=== PATIENT | male | born 1940 | race Caucasian/White ===

== ENCOUNTER → 2017-02-24 | Outpatient (CLI) | payer OTHER | LOC: FIMAGING 09:56 | PROVIDERS: ATTEND Internal Medicine Hematology & Oncology | DX: M89.8X9 Other specified disorders of bone, unspecified site (principal); C61 Malignant neoplasm of prostate | CPT/HCPCS: 78306; A9503 ==

== ENCOUNTER → 2017-08-03 | Outpatient (CLI) | payer OTHER | LOC: BHFA 09:00 | PROVIDERS: ATTEND Internal Medicine Cardiovascular Disease | DX: R42 Dizziness and giddiness (principal); R53.83 Other fatigue; R06.02 Shortness of breath ==

== ENCOUNTER 2017-08-21 10:30 | Observation (INO) | payer OTHER ==
--- NOTE | 2017-08-21 10:45 | EDPHY ---
H & P Stated Complaint: r sided abd pain/n/v Time Seen by Provider: 08/21/17 10:44 - Personal History Current Tetanus Diphtheria and Acellular Pertussis (TDAP): Yes Tetanus Vaccine Date: <5 years - Medical/Surgical History Hx Asthma: No Hx Chronic Respiratory Disease: Yes Hx Diabetes: No Hx Cardiac Disease: No Hx Renal Disease: No Hx Cirrhosis: No Hx Alcoholism: No Hx HIV/AIDS: No Hx Splenectomy or Spleen Trauma: No Other PMH: medical HTN, COPD, Bladder Cancer, depression, Prostatectomy, tonsillectomy, episode of afib - Social History Smoking Status: Former smoker Constitutional: Initial Vital Signs Temperature (C) 36.3 C 08/21/17 10:37 Heart Rate 55 L 08/21/17 10:37 Respiratory Rate 18 08/21/17 10:37 Blood Pressure 226/104 H 08/21/17 10:37 O2 Sat (%) 95 08/21/17 10:37 O2 Delivery Mode Room Air Allergies/Adverse Reactions: Penicillins Allergy (Verified 08/21/17 10:36) Home Medications: Medication Instructions Recorded Atenolol [Tenormin 50 mg (*)] 50 mg PO DAILY 02/06/12 Ibuprofen [Motrin (*)] 200 mg PO Q8 PRN 03/29/14 diphenhydrAMINE [Benadryl 25 MG 25 mg PO DAILY PRN 03/29/14 (*)] Bicalutamide [Casodex (*)] 50 mg PO DAILY #30 tab 04/03/14 Megestrol Acetate [Megace 40 mg 40 mg PO QID #120 tab 04/03/14 (*)] Acetaminophen [Tylenol 325mg (*)] 650 mg PO Q4 PRN #0 tab 04/06/14 Zytiga 08/21/17 Medical Decision Making - Diagnostics Imaging Results: Imaging Impressions Abdomen CT 08/21/17 11:14 Impression: 1. 3.1 cm laminated gallstone within the gallbladder which may be impacted in the gallbladder neck distention of the gallbladder body and mild gallbladder wall thickening. If indicated, consider correlation with right upper quadrant ultrasound. 2. Diffuse thinning of the renal cortex bilaterally. 3. Previous prostatectomy for prostate cancer. 4. Diffuse osseous metastatic disease present without evidence of pathologic fracture. 5. Small enhancing lesion anterior superior bladder wall. If indicated, consider correlation with cystoscopy. 6. Diffuse diverticulosis of the colon without diverticulitis. Imaging: Discussed imaging studies w/ ruby engineer Radiologist, I viewed and interpreted images myself ED Course/Re-evaluation: CHIEF COMPLAINT: Abdominal pain HISTORY OF PRESENT ILLNESS: The patient is a 77 y/o male with a history of bladder cancer arriving with his family member complaining of RUQ abdominal pain onset around 03:00 this morning, about 8 hours ago. His pain radiates around to his back. He denies groin or testicle pain, dysuria, or flank pain. His pain is worse with certain positions and alleviated slightly by lying supine. He has associated nausea and vomiting. He denies diarrhea and has had normal bowel movements recently. He has no history of abdominal surgeries aside from a prostatectomy. REVIEW OF SYSTEMS: A 10 point review of systems was performed and is negative with the exception of the elements mentioned in the history of present illness. PHYSICAL EXAM: HR, BP, O2 Sat, RR. Temp noted General Appearance: Alert, well hydrated, appropriate, and non-toxic appearing. Head: Atraumatic without scalp tenderness or obvious injury Eyes: Pupils equal, round, reactive to light and accommodation, EOMI, no trauma , no injection. Nose: Atraumatic, no rhinorrhea, clear. Throat: Mucus membranes moist. Neck: Supple, nontender, no lymphadenopathy. Respiratory: No retractions, no distress, no wheezes, and no accessory muscle use. Lungs are clear to auscultation bilaterally. Cardiovascular: Regular rate and rhythm, no murmurs, rubs, or gallops. Good capillary refill all extremities. Gastrointestinal: Abdomen is soft, right pericolic gutter and RUQ tenderness, non-distended, no masses, no rebound, no guarding, no peritoneal signs. Musculoskeletal: Normal active ROM of all extremities, atraumatic. Neurological: Alert, appropriate, and interactive. Nonfocal neuro exam. Skin: No rashes, good turgor, no nodules on palpation. Past medical history: Bladder cancer, hypertension, Bladder Cancer, depression, episode of a-fib Past surgical history: Prostatectomy, laminectomy Family history: noncontributory Social history: Family member at bedside. Lives at [facility]. Retired. DIAGNOSTICS/PROCEDURES/CRITICAL CARE TIME: CT Abdomen/Pelvis: thickened gallbladder and stone in the duct DIFFERENTIAL DIAGNOSIS: The differential diagnosis for the patient's abdominal pain included but was not limited to appendicitis, cholecystitis, hernias, testicular torsion, gastritis, and urinary tract infection. MEDICAL DECISION MAKING: This is a 77 y/o male presenting with an 8-hour history of RUQ pain and vomiting. He has RUQ tenderness on exam and is afebrile. Plan for IV, labs, CT imaging, and symptom management. 1L IV NS, 4mg IV Zofran, and 1mg IV Dilaudid administered. WBC elevated. CT shows thickened gallbladder and stone in the duct. Gallbladder US ordered. 1330: Consulted with Dr. Go, surgeon. He will assess patient in the ED. Dr. Go will admit patient for acute cholecystitis. - Data Points Laboratory Results: Laboratory Results 08/21/17 10:55 08/21/17 10:55 08/21/17 08/21/17 10:55 10:55 WBC 12.53 10^3/uL H 10^3/uL (3.80-9.50) RBC 4.54 10^6/uL 10^6/uL (4.40-6.38) Hgb 15.1 g/dL g/dL (13.7-17.5) Hct 44.2 % % (40.0-51.0) MCV 97.4 fL fL (81.5-99.8) MCH 33.3 pg pg (27.9-34.1) MCHC 34.2 g/dL g/dL (32.4-36.7) RDW 14.1 % % (11.5-15.2) Plt Count 187 10^3/uL 10^3/uL (150-400) MPV 10.3 fL fL (8.7-11.7) Neut % (Auto) 82.0 % H % (39.3-74.2) Lymph % (Auto) 8.9 % L % (15.0-45.0) [place] % (Auto) 7.5 % % (4.5-13.0) Eos % (Auto) 0.4 % L % (0.6-7.6) Baso % (Auto) 0.4 % % (0.3-1.7) Nucleat RBC Rel Count 0.0 % % (0.0-0.2) Absolute Neuts (auto) 10.27 10^3/uL H 10^3/uL (1.70-6.50) Absolute Lymphs (auto) 1.12 10^3/uL 10^3/uL (1.00-3.00) Absolute Monos (auto) 0.94 10^3/uL H 10^3/uL (0.30-0.80) Absolute Eos (auto) 0.05 10^3/uL 10^3/uL (0.03-0.40) Absolute Basos (auto) 0.05 10^3/uL 10^3/uL (0.02-0.10) Absolute Nucleated RBC 0.00 10^3/uL 10^3/uL (0-0.01) Immature Gran % 0.8 % % (0.0-1.1) Immature Gran # 0.10 10^3/uL 10^3/uL (0.00-0.10) Sodium 143 mEq/L mEq/L (134-144) Potassium 3.6 mEq/L mEq/L (3.5-5.2) Chloride 107 mEq/L mEq/L (97-110) Carbon Dioxide 22 mEq/l mEq/l (22-31) Anion Gap 14 mEq/L mEq/L (8-16) BUN 13 mg/dL mg/dL (7-23) Creatinine 0.7 mg/dL mg/dL (0.7-1.3) Estimated GFR > 60 Glucose 114 mg/dL H mg/dL (70-100) Calcium 9.0 mg/dL mg/dL (8.5-10.4) Total Bilirubin 0.7 mg/dL mg/dL (0.1-1.4) Conjugated Bilirubin 0.4 mg/dL mg/dL (0.0-0.5) Unconjugated Bilirubin 0.3 mg/dL mg/dL (0.0-1.1) AST 20 IU/L IU/L (17-59) ALT 28 IU/L IU/L (21-72) Alkaline Phosphatase 66 IU/L IU/L (38-126) Total Protein 7.3 g/dL g/dL (6.3-8.2) Albumin 4.5 g/dL g/dL (3.5-5.0) Lipase 128 IU/L IU/L (23-300) Medications Given: Discontinued Medications Hydromorphone HCl (Dilaudid) 1 mg IVP EDNOW ONE Stop: 08/21/17 11:15 Last Admin: 08/21/17 11:16 Dose: 1 mg Sodium Chloride (Ns) 1,000 mls @ 0 mls/hr IV ONCE ONE PRN Reason: Wide Open Stop: 08/21/17 10:53 Last Admin: 08/21/17 10:57 Dose: 1,000 mls Sodium Chloride (Ns) 1,000 mls @ 0 mls/hr IV EDNOW ONE; Wide Open PRN Reason: Protocol Stop: 08/21/17 11:15 Last Admin: 08/21/17 11:17 Dose: Not Given Ondansetron HCl (Zofran) 4 mg IVP EDNOW ONE Stop: 08/21/17 10:53 Last Admin: 08/21/17 10:58 Dose: 4 mg Departure - Departure Disposition: [facility] Inpatient Acute Clinical Impression: Acute cholecystitis Gallbladder & bile duct stone with obstruction Qualifiers: Cholecystitis presence: with cholecystitis Cholecystitis acuity: acute Qualified Code(s): K80.63 - Calculus of gallbladder and bile duct with acute cholecystitis with obstruction Condition: Fair Referrals: María Elena Ellison MD [Primary Care Provider] - As per Instructions Report Scribed for: Julius Sanders Report Scribed by: Tamia Alvarenga Date of Report: 08/21/17 Time of Report: 11:14
[2017-08-21] MEDS ORDERED: NS 1,000 ML IV ONE ×2 (10:52→11:14)
[2017-08-21] MEDS ORDERED: ONDANSETRON 4 MG/2 ML VIAL IVP ONE (10:52)
[2017-08-21] MEDS ORDERED: HYDROmorphONE/DILAUDID 1 MG/ML INJ IVP ONE ×2 (11:14→14:19)
[2017-08-21] MEDS ORDERED: HYDROmorphONE/DILAUDID 1 MG/ML INJ ONE (11:14)
[2017-08-21 11:20] LABS: % IMMATURE GRANULYOCYTES 0.8 % (0.0-1.1); ADD DIFF? NO; ADD MORPH? NO; ADD SCAN? NO; ATYPICAL LYMPHOCYTE FLAG 0 (0-99); FRAGMENT RBC FLAG 0 (0-99); HEMATOCRIT 44.2 % (40.0-51.0); HEMOGLOBIN 15.1 g/dL (13.7-17.5); LEFT SHIFT FLG 0 (0-99); LIPEMIA HEMOLYSIS FLAG 90 (0-99); MEAN CELL HEMOGLOBIN 33.3 pg (27.9-34.1); MEAN CELL HEMOGLOBIN CONCENTR. 34.2 g/dL (32.4-36.7); MEAN CELL VOLUME 97.4 fL (81.5-99.8); MEAN PLATELET VOLUME 10.3 fL (8.7-11.7); PLATELET CLUMPS FLAG 0 (0-99); PLATELET COUNT 187 10^3/uL (150-400); RED BLOOD CELL COUNT 4.54 10^6/uL (4.40-6.38); RED CELL DISTRIBUTION WIDTH 14.1 % (11.5-15.2)
[2017-08-21 11:26] LABS: ALANINE AMINOTRANSFERASE 28 IU/L (21-72); ALBUMIN 4.5 g/dL (3.5-5.0); ALKALINE PHOSPHATASE 66 IU/L (38-126); ANION GAP 14 mEq/L (8-16); ASPARTATE AMINOTRANSFERASE 20 IU/L (17-59); BILIRUBIN,TOTAL 0.7 mg/dL (0.1-1.4); BILIRUBIN-CONJUGATED 0.4 mg/dL (0.0-0.5); BILIRUBIN-UNCONJUGATED 0.3 mg/dL (0.0-1.1); CARBON DIOXIDE 22 mEq/l (22-31); CHLORIDE 107 mEq/L (97-110); CREATININE 0.7 mg/dL (0.7-1.3); GLOMERULAR FILTRATION RATE > 60; GLUCOSE 114 mg/dL (70-100); POTASSIUM 3.6 mEq/L (3.5-5.2); SODIUM 143 mEq/L (134-144); TOTAL PROTEIN 7.3 g/dL (6.3-8.2)
[2017-08-21] MEDS ORDERED: IOPAMIDOL (ISOVUE-300) 100 ML BTL ONE (11:37)
[2017-08-21] MEDS ORDERED: ERTAPENEM 1 GM in NS 100 ML IV ONE (13:51)
[2017-08-21] MEDS ORDERED: BUPIVACAINE 0.25% 30 ML SDV ONE (14:02)
--- NOTE | 2017-08-21 14:35 | PDGENHP ---
History and Physical - Chief Complaint Right upper quadrant pain - History of Present Illness 77-year-old male who began noticing right upper quadrant pain last evening. States the pain began in the middle the night describes it as sharp, radiating towards the back and worse with movement. He has had abdominal pain before but nothing like this. In addition to the pain, he endorses nausea without vomiting. The pain has been unrelenting since it began it is better with IV narcotics. He denies having any fevers or chills, he denies having any acholic stools and or unusually dark urine. History Information - Allergies/Home Medication List Allergies/Adverse Reactions: Penicillins Allergy (Verified 08/21/17 10:36) Home Medications: Atenolol [Tenormin 50 mg (*)] 50 mg PO DAILY 02/06/12 [Last Taken 04/04/14] Ibuprofen [Motrin (*)] 200 mg PO Q8 PRN 03/29/14 [Last Taken Unknown] diphenhydrAMINE [Benadryl 25 MG (*)] 25 mg PO DAILY PRN 03/29/14 [Last Taken Unknown] Zytiga 08/21/17 [Last Taken Unknown] I have personally reviewed and updated: family history, medical history, social history, surgical history Past Medical History: Advanced prostate cancer - Surgical History Additional surgical history: Radical prostatectomy performed in 1997 - Family History Positive for: non-pertinent - Social History Smoking Status: Former smoker Alcohol Use: Occasionally Review of Systems Review of Systems: ROS: 10pt was reviewed & negative except for what was stated in HPI & below Physical Exam Physical Exam: Temp Pulse Resp BP Pulse Ox 36.8 C 66 16 212/102 H 93 08/21/17 14:14 08/21/17 14:14 08/21/17 14:14 08/21/17 14:14 08/21/17 14:14 Constitutional: uncomfortable Eyes: PERRL, anicteric sclera Ears, Nose, Mouth, Throat: moist mucous membranes, hearing normal Cardiovascular: regular rate and rhythym, no murmur, rub, or gallop Respiratory: no respiratory distress, no rales or rhonchi Gastrointestinal: other (Soft, tender to palpation in the right upper quadrant with a positive Green sign) Skin: warm Musculoskeletal: full muscle strength, no muscle tenderness Neurologic: AAOx3 Psychiatric: interacting appropriately, not anxious Lymph, Heme, Immunologic: no cervical LAD, no supraclavicular LAD Lab Data & Imaging Review 08/21/17 10:55 08/21/17 10:55 WBC 12.53 10^3/uL (3.80-9.50) H 08/21/17 10:55 RBC 4.54 10^6/uL (4.40-6.38) 08/21/17 10:55 Hgb 15.1 g/dL (13.7-17.5) 08/21/17 10:55 Hct 44.2 % (40.0-51.0) 08/21/17 10:55 MCV 97.4 fL (81.5-99.8) 08/21/17 10:55 MCH 33.3 pg (27.9-34.1) 08/21/17 10:55 MCHC 34.2 g/dL (32.4-36.7) 08/21/17 10:55 RDW 14.1 % (11.5-15.2) 08/21/17 10:55 Plt Count 187 10^3/uL (150-400) 08/21/17 10:55 MPV 10.3 fL (8.7-11.7) 08/21/17 10:55 Neut % (Auto) 82.0 % (39.3-74.2) H 08/21/17 10:55 Lymph % (Auto) 8.9 % (15.0-45.0) L 08/21/17 10:55 [place] % (Auto) 7.5 % (4.5-13.0) 08/21/17 10:55 Eos % (Auto) 0.4 % (0.6-7.6) L 08/21/17 10:55 Baso % (Auto) 0.4 % (0.3-1.7) 08/21/17 10:55 Nucleat RBC Rel Count 0.0 % (0.0-0.2) 08/21/17 10:55 Absolute Neuts (auto) 10.27 10^3/uL (1.70-6.50) H 08/21/17 10:55 Absolute Lymphs (auto) 1.12 10^3/uL (1.00-3.00) 08/21/17 10:55 Absolute Monos (auto) 0.94 10^3/uL (0.30-0.80) H 08/21/17 10:55 Absolute Eos (auto) 0.05 10^3/uL (0.03-0.40) 08/21/17 10:55 Absolute Basos (auto) 0.05 10^3/uL (0.02-0.10) 08/21/17 10:55 Absolute Nucleated RBC 0.00 10^3/uL (0-0.01) 08/21/17 10:55 Immature Gran % 0.8 % (0.0-1.1) 08/21/17 10:55 Immature Gran # 0.10 10^3/uL (0.00-0.10) 08/21/17 10:55 Sodium 143 mEq/L (134-144) 08/21/17 10:55 Potassium 3.6 mEq/L (3.5-5.2) 08/21/17 10:55 Chloride 107 mEq/L (97-110) 08/21/17 10:55 Carbon Dioxide 22 mEq/l (22-31) 08/21/17 10:55 Anion Gap 14 mEq/L (8-16) 08/21/17 10:55 BUN 13 mg/dL (7-23) 08/21/17 10:55 Creatinine 0.7 mg/dL (0.7-1.3) 08/21/17 10:55 Estimated GFR > 60 08/21/17 10:55 Glucose 114 mg/dL (70-100) H 08/21/17 10:55 Calcium 9.0 mg/dL (8.5-10.4) 08/21/17 10:55 Total Bilirubin 0.7 mg/dL (0.1-1.4) 08/21/17 10:55 Conjugated Bilirubin 0.4 mg/dL (0.0-0.5) 08/21/17 10:55 Unconjugated Bilirubin 0.3 mg/dL (0.0-1.1) 08/21/17 10:55 AST 20 IU/L (17-59) 08/21/17 10:55 ALT 28 IU/L (21-72) 08/21/17 10:55 Alkaline Phosphatase 66 IU/L (38-126) 09/30/17 10:55 Total Protein 7.3 g/dL (6.3-8.2) 08/21/17 10:55 Albumin 4.5 g/dL (3.5-5.0) 08/21/17 10:55 Lipase 128 IU/L (23-300) 08/21/17 10:55 Visualized and Interpreted imaging results: Yes Interpretation: CT scan shows a dilated gallbladder with a large stone impacted in the infundibulum with associated pericholecystic fluid. Ultrasound corroborates these findings Assessment & Plan Assessment: Acute cholecystitis (Acute) Gallbladder & bile duct stone with obstruction (Acute) Plan: 77-year-old male with acute cholecystitis Plan will be to proceed to the operating room as time permits for laparoscopic cholecystectomy. Risks benefits and alternatives to surgery discussed with the patient who wishes to proceed. Patient is also on a lot of new were drugs for his advanced prostate cancer, will inform his oncologist that he is in-house.
--- NOTE | 2017-08-21 15:46 | PDANEPAE ---
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 - Chronic Pain History Chronic Pain: No - Surgical History Prior Surgeries: prostatectomy ANE Review of Systems Review of Systems: - Systems Constitutional: Reports: malaise Cardiac: Reports: no symptoms Gastrointestinal: Reports: abdominal pain ANE Patient History - Allergies Allergies/Adverse Reactions: Penicillins Allergy (Verified 08/21/17 10:36) - Home Medications Home medications: home medication list seen and reviewed Home Medications: Atenolol [Tenormin 50 mg (*)] 50 mg PO DAILY 02/06/12 [Last Taken 04/04/14] Ibuprofen [Motrin (*)] 200 mg PO Q8 PRN 03/29/14 [Last Taken Unknown] diphenhydrAMINE [Benadryl 25 MG (*)] 25 mg PO DAILY PRN 03/29/14 [Last Taken Unknown] Zytiga 08/21/17 [Last Taken Unknown] - NPO status NPO Status: no food or drink >8 hours NPO Since - Liquids (Date): 08/21/17 NPO Since - Liquids (Time): 04:00 NPO Since - Solids (Date): 08/20/17 NPO Since - Solids (Time): 17:00 - Anes Hx Anes Hx: no prior problems - Smoking Hx Smoking Status: Former smoker Marijuana use: No - Alcohol Use Alcohol Use: Occasionally - Family Anes Hx Family Anes Hx: neg - N/A ANE Labs/Vital Signs - Labs Result Diagrams: 08/21/17 10:55 08/21/17 10:55 - Vital Signs Blood Pressure: 212/102 Heart Rate: 66 Respiratory Rate: 16 O2 Sat (%): 93 Height: 180.34 cm Weight: 59.874 kg ANE Physical Exam - Airway Neck exam: FROM Mallampati Score: Class 2 - Pulmonary Pulmonary: clear to auscultation - Cardiovascular Cardiovascular: other (occassional irregular beats) - ASA Status ASA Status: IV ANE Anesthesia Plan Anesthesia Plan: general endotracheal anesthesia
[2017-08-21] MEDS ORDERED: PROPOFOL 200 MG/20 ML VIAL ONE (16:05)
[2017-08-21] MEDS ORDERED: fentaNYL 100 MCG/2 ML INJ ONE ×3 (16:05→17:56)
[2017-08-21] MEDS ORDERED: PHENYLEPHRINE HCL 100 MCG/ML SYR ONE (16:29)
[2017-08-21] MEDS ORDERED: DEXAMETHASONE 4 MG/ML VIAL ONE (16:46)
[2017-08-21] MEDS ORDERED: ROCURONIUM 50 MG/5 ML VIAL ONE (16:46)
[2017-08-21] MEDS ORDERED: LIDOCAINE 2% 5 ML SDV ONE (16:46)
[2017-08-21] MEDS ORDERED: ONDANSETRON 4 MG/2 ML VIAL ONE (16:58)
[2017-08-21] MEDS ORDERED: KETOROLAC 30 MG/1 ML SDV ONE (17:06)
[2017-08-21] MEDS ORDERED: PROMETHAZINE HCL 25 MG/ML INJ IVP PRN (17:17)
[2017-08-21] MEDS ORDERED: [UNRECOGNIZED DRUG - OTHER] IV PRN (17:17)
[2017-08-21] MEDS ORDERED: NALOXONE HCL 0.4 MG/ML INJ IVP PRN (17:17)
[2017-08-21] MEDS ORDERED: HYDROCODONE/APAP 5/325 TAB PO PRN (17:17)
[2017-08-21] MEDS ORDERED: ACETAMINOPHEN 500 MG TAB PO PRN (17:17)
[2017-08-21] MEDS ORDERED: LABETALOL HCL 50 MG/10 ML SYR IVP PRN (17:17)
[2017-08-21] MEDS ORDERED: HYDROmorphONE/DILAUDID 1 MG/ML INJ IVP PRN (17:46)
[2017-08-21] MEDS ORDERED: ONDANSETRON 4 MG/2 ML VIAL IVP PRN (17:46)
--- NOTE | 2017-08-21 17:46 | POSTOPPROG ---
Post Op Note Date of Operation: 08/21/17 Surgeon: Nicholas Go Anesthesiologist: Sterling Anesthesia: GET(General Endotracheal) Pre-op Diagnosis: Cholecystitis Post-op Diagnosis: same Procedure: Lap Natalya Findings: very inflamed, large stone impacted in infundibulum, pus in GB as well Inf/Abcess present in the surg proc area at time of surgery?: Yes Depth: Organ Space EBL: 50-100 Specimen(s): GB
--- NOTE | 2017-08-21 17:47 | POSTANESTH ---
Post Anesthetic Evaluation Cardiovascular Status: Similar to Pre-Op Cond, Tx Hyper/Hypo-tension Respiratory Status: Normal, Stable Level of Consciousness/Mental Status: Can Participate in Eval, Mildly Sleepy, Arousable Pain Control: Adequate, Prn Tx Ordered Nausea/Vomiting Control: Adequate, Prn Tx Ordered Complications Possibly Related to Anesthesia: None Noted
[2017-08-21] MEDS: fentaNYL 100 MCG/2 ML INJ IVP PRN ×3 (17:58→18:54)
[2017-08-21] MEDS ORDERED: D5W 1/2 NS W/ 20 KCl/L 1,000 ML IV SCH (18:00)
[2017-08-21] MEDS ORDERED: OXYCODONE/APAP 5/325 TAB ONE (18:36)
[2017-08-21] MEDS: OXYCODONE/APAP 5/325 TAB PO PRN (18:38)
--- NOTE | 2017-08-21 21:26 | GOP ---
[f rep st] OPERATIVE REPORT DATE OF OPERATION: 08/21/2017 SURGEON: Nicholas Go MD DELICATESSEN CLERK: None. ANESTHESIA: General endotracheal. ANESTHESIOLOGIST: Keisha Medellin MD PREOPERATIVE DIAGNOSIS: Acute cholecystitis. POSTOPERATIVE DIAGNOSIS: Acute cholecystitis. PROCEDURE PERFORMED: Laparoscopic cholecystectomy. FINDINGS: Very inflamed gallbladder wall with purulent bile within the gallbladder proper. Large st one impacted in the infundibulum. SPECIMENS: Gallbladder. ESTIMATED BLOOD LOSS: 75 cc. DESCRIPTION OF PROCEDURE: The patient was greeted in the preoperative suite. Once again, risks, paul efits, and alternatives were discussed. The consent was then signed. He was then brought back to [facility] operative suite, placed on the OR table in supine position. After all anesthesia machines, includi ng SCDs, were on and functioning, a [employer] time-out was performed ending with all in agreement. After successful induction of general anesthesia, antibiotics were given on-call to [facility] operating room. His abdomen was then prepped and draped in typical sterile fashion. I entered the abdomen via an infraumbilical vertical incision, through which I placed a Veress needle. I achieved pneumoperitoneum to 15 mmHg. Through this site, I placed a 12 mm Visiport under direct visualizatio n. I then placed 3 additional 5 mm trocars, 1 in the subxiphoid, 2 in the right upper quadrant. Aft er this was done, the gallbladder wall was very tense. I successfully aspirated the contents which a ppeared to be purulent bile. After aspiration, I retracted the gallbladder successfully over the edg e of the liver. I grasped the infundibulum, and through a combination of electrocautery and blunt di ssection, I dissected out the infundibulum and identified 2, and only 2 structures, leading toward [facility] gallbladder. I placed 3 clips proximally on the cystic duct and divided it. I did the same for [facility] cystic artery. I then took the gallbladder off the liver bed using electrocautery. It was then pl aced in an EndoCatch bag and removed. Given the size of the stone within it, I had to increase my in fraumbilical port site. Once this was done, I turned my attention toward the liver bed which did hav e some bleeding in it. Using a combination of electrocautery and Surgicel, I was able to make the ar ea hemostatic. I also used Mally in the liver bed as well to ensure hemostasis. After this was done , I irrigated all of the blood out and noted clear effluent in the suction canister. My ports were t hen removed under direct visualization. Given the fact that I had to increase my infraumbilical port site, I closed it with a running 0 PDS noting excellent fascial reapproximation. The skin for all s ites was then closed with interrupted 4-0 Monocryl. The right-most port site had a little cutaneous bleeding as well. I closed this with an interrupted 3-0 nylon suture. Dermabond was placed to all i ncision sites except for this one. The patient was then extubated in the operative suite and taken t o the PACU in satisfactory condition. DRAINS: None. COUNTS: All counts were reported as correct x2. /[id number]/MODL
[2017-08-22] MEDS: OXYCODONE/APAP 5/325 TAB PO PRN ×2 (00:40→08:45)
[2017-08-22] MEDS ORDERED: NON-FORMULARY NEW DRUG (Fexofenadine Hcl [Allegra Allergy] 180 MG) PO PRN (06:09)
[2017-08-22 07:28] VITALS: BP 149/57; PULSE 74; RESP 16; TEMP 97.9; O2SAT 92
[2017-08-22] MEDS ORDERED: ERTAPENEM 1 GM in NS 100 ML IV ONE (08:00)
[2017-08-22] MEDS: ATENOLOL 50 MG TAB PO SCH ×2 (08:38→10:20)
[2017-08-22] MEDS: predniSONE 5 MG TAB PO SCH ×2 (08:38→10:20)
[2017-08-22] MEDS ORDERED: NON-FORMULARY NEW DRUG (Abiraterone Acetate [Zytiga] 1,000 MG) PO SCH (09:00)
--- NOTE | 2017-08-22 09:09 | PDDCSUM ---
Discharge Summary Discharge Summary: DISCHARGE SUMMARY Date of Admission August 21 Date of Discharge August 22 DISCHARGE DIAGNOSES -acute cholecystitis HOSPITAL COURSE The patient was admitted from the ED and taken to the operating room where they underwent an uneventful laparoscopic cholecystectomy for acute cholecystitis. They were subsequently taken to the PACU and then the general medical floor. The hospital course was uneventful, their diet was advanced to a regular diet which was well tolerated and their pain was well controlled. They were discharged home in stable condition on DISCHARGE MEDICATIONS Percocet as needed for pain DISPOSITION Home FOLLOW UP Follow up with me in the office in 10-14 days for a general post-operative visit
--- NOTE | 2017-08-22 11:04 | ASMTCMCOM ---
CM Note CM Note Notes: Chart reviewed. Patient discharging to home with no known needs. CM available should needs arise. Date Signed: 08/22/2017 11:04 AM Electronically Signed By:Kristen Mccabe RN
--- NOTE | 2017-08-22 15:07 | ASDISCHSUM ---
Discharge Information Plan Status:Home with No Needs Medically Cleared to Leave: Discharge Date:08/22/2017 12:25 PM CM D/C Disposition:Home, Routine, Self-Care ADT D/C Disposition:Home, Routine, Self-Care Projected Discharge Date:08/22/2017 12:25 PM Transportation at D/C:Family Discharge Delay Reason: Follow-Up Date:08/22/2017 12:25 PM Discharge Slot: Final Diagnosis: Placement Information Patient Contact Information Contact Name:ANA ROSAAbril Relationship: Address: Home Phone: Work Phone: City: Alternate Phone: State/Zip Code: Email: Financial Information Financial Class: Primary Plan Desc:MEDICARE OUTPATIENT Primary Plan Number:[id number] Secondary Plan Desc: Secondary Plan Number: Assessment Information [facility] CM Progress Note CM Note CM Note Notes: Chart reviewed. Patient discharging to home with no known needs. CM available should needs arise. Date Signed: 08/22/2017 11:04 AM Electronically Signed By:Kristen Mccabe RN Intervention Information
== END 2017-08-22 12:25 | disposition home or self-care (01) ==
LOC: F3E 13:51
PROVIDERS: ADMIT Surgery; ATTEND Surgery
PROC: 0FT44ZZ Resection of Gallbladder, Percutaneous Endoscopic Approach (ICD-10-PCS; principal; 2017-08-21 15:00)
DX: K80.00 Calculus of gallbladder with acute cholecystitis without obstruction (principal); I10 Essential (primary) hypertension; I49.3 Ventricular premature depolarization; J44.9 Chronic obstructive pulmonary disease, unspecified; C79.51 Secondary malignant neoplasm of bone; Z85.46 Personal history of malignant neoplasm of prostate
CPT/HCPCS: 47562; 74177; 76705; 88304; G0378; J0171; J1100; J1170; J1335; J1885; J2370; J2405; J2704; J3010; Q9967

== ENCOUNTER → 2017-10-11 | Outpatient (CLI) | payer OTHER | LOC: FIMAGING 15:30 | PROVIDERS: ATTEND Internal Medicine Hematology & Oncology | DX: R91.1 Solitary pulmonary nodule (principal); Z85.46 Personal history of malignant neoplasm of prostate ==

== ENCOUNTER → 2017-11-05 | Outpatient (CLI) | payer OTHER | LOC: BHFA 13:00 | PROVIDERS: ATTEND Internal Medicine Cardiovascular Disease | DX: R94.39 Abnormal result of other cardiovascular function study (principal); R53.83 Other fatigue; E78.5 Hyperlipidemia, unspecified; J44.9 Chronic obstructive pulmonary disease, unspecified | CPT/HCPCS: 78452; 93017; A9500; J2785 ==

== ENCOUNTER 2018-01-26 11:14 | Emergency (ER) | payer OTHER ==
--- NOTE | 2018-01-26 11:48 | EDPHY ---
H & P Stated Complaint: bilat earaches /st x 3 weeks Time Seen by Provider: 01/26/18 11:47 HPI/ROS: HPI: This is a 77-year-old male who presents with Chief Complaint: bilat earaches /st x 3 weeks Location: Bilateral ear Quality: Aching Duration: 3 weeks Signs and Symptoms: no fever, no nausea, no vomiting, no photophobia, no noise sensitivity, no neck stiffness, + ear pain, no tinnitus, no nasal congestion, no sinus pressure, no weakness, no radiation, + postnasal drip Timing: Worse at night Severity: [id number] Context: Patient reports that he has a history of seasonal allergies and has been taking Benadryl 3 times per day for the last month. Reports that he has continued ear pressure bilaterally and sore throat accompanied by postnasal drip that is worse at night. Patient also complains of sinus pressure and tenderness with green nasal discharge. Patient reports that he uses nasal spray daily as well. Modifying Factors: Benadryl and nasal spray Comment: ROS: see HPI Constitutional: No fever, no chills, no weight loss Eyes: No blurred vision Respiratory: No shortness of breath, no cough Cardiovascular: No chest pain, no palpitations Gastrointestinal: No nausea, no vomiting, no diarrhea, no hematemesis, no blood in stool Genitourinary: No dysuria, no blood in urine Extremities: No myalgias, no edema Neurologic: No weakness, no numbness Skin: No rashes, no petechiae Hematologic: No bruising, no bleeding MEDICAL/SURGICAL/SOCIAL HISTORY: Medical/Surgical history: HTN, COPD, Bladder Cancer, depression, Prostatectomy , tonsillectomy, episode of afib, COPD Social history: CONSTITUTIONAL: Extremely well-appearing elderly white male, awake and alert, no obvious distress HEENT: Atraumatic and normocephalic, PERRL, EOMI. Tympanic membranes clear; mild effusion bilaterally. Oropharynx clear, no exudate and moist pink mucosa. Airway patent. Nares with green discharge; boggy mucosa. + sinus tenderness. No lymphadenopathy. No meningismus. Cardiovascular: Normal S1/S2, regular rate, regular rhythm, without murmur rub or gallop. PULMONARY/CHEST: Symmetrical and nontender. Clear to auscultation bilaterally. Good air movement. No accessory muscle usage. ABDOMEN: Soft, nondistended, nontender, no rebound, no guarding, no peritoneal signs, no masses or organomegaly. No CVAT. EXTREMITIES: 2/2 pulses, strength 5/5, no deformities, no clubbing, no cyanosis or edema. NEUROLOGICAL: no focal neuro deficits. GCS 15. SKIN: Warm and dry, no erythema. no rash. Good capillary refill. Source: Patient Exam Limitations: No limitations - Personal History Current Tetanus/Diphtheria Vaccine: No Tetanus Vaccine Date: <5 years - Medical/Surgical History Hx Asthma: No Hx Chronic Respiratory Disease: Yes Hx Diabetes: No Hx Cardiac Disease: No Hx Renal Disease: No Hx Cirrhosis: No Hx Alcoholism: No Hx HIV/AIDS: No Hx Splenectomy or Spleen Trauma: No Other PMH: medical HTN, COPD, Bladder Cancer, depression, Prostatectomy, tonsillectomy, episode of afib copd - Social History Smoking Status: Former smoker Constitutional: Initial Vital Signs Temperature (C) 36.3 C 01/26/18 11:18 Heart Rate 80 01/26/18 11:18 Respiratory Rate 16 01/26/18 11:18 Blood Pressure 98/72 L 01/26/18 11:18 O2 Sat (%) 96 01/26/18 11:18 O2 Delivery Mode Room Air Allergies/Adverse Reactions: Penicillins Allergy (Intermediate, Verified 01/26/18 11:16) Itching Home Medications: Medication Instructions Recorded Acetaminophen [Tylenol 325mg (*)] 650 mg PO Q4 PRN #0 tab 04/06/14 Abiraterone Acetate [Zytiga] 1,000 mg PO DAILY 08/21/17 Denosumab [Prolia] 60 mg SQ .QMONTHLY 08/21/17 Cetirizine HCl/Pseudoephedrine 1 each PO BID #20 tab.er.12h 01/26/18 [Zyrtec-D Tablet] Metoprolol Succinate 01/26/18 levOFLOXACIN [levAQUIN (*)] 500 mg PO DAILY #10 tab 01/26/18 Medical Decision Making ED Course/Re-evaluation: Symptoms greater than 10 days; will treat with antibiotics; penicillin allergy; Rx Levaquin and Zyrtec D given This patient was seen under the supervision of my secondary supervising physician. I evaluated care for this patient independently. Differential Diagnosis: Differential diagnosis includes but is not limited to sinus disease, allergic rhinitis, eustachian tube dysfunction, cerumen impaction. Departure - Departure Disposition: Home, Routine, Self-Care Clinical Impression: Sinus disease Condition: Good Instructions: Sinusitis (ED), Allergies (ED) Referrals: María Elena Ellison MD [Primary Care Provider] - As per Instructions Woo Meeks MD [Medical Doctor] - As per Instructions Prescriptions: Cetirizine HCl/Pseudoephedrine [Zyrtec-D Tablet] 1 each PO BID #20 tab.er.12h levOFLOXACIN [levAQUIN (*)] 500 mg PO DAILY #10 tab
[2018-01-26 13:12] VITALS: BP 121/71; PULSE 67; RESP 18; TEMP 98.1; O2SAT 97
== END 2018-01-26 13:11 | disposition home or self-care (01) ==
DX: J32.9 Chronic sinusitis, unspecified (principal); J44.9 Chronic obstructive pulmonary disease, unspecified; I10 Essential (primary) hypertension; Z85.51 Personal history of malignant neoplasm of bladder; Z87.891 Personal history of nicotine dependence

== ENCOUNTER 2018-01-31 14:22 | Inpatient (IN) | payer OTHER ==
[2018-01-31] MEDS ORDERED: NS 1,000 ML IV ONE (14:32)
[2018-01-31] MEDS ORDERED: IPRATROPIUM/ALBUTEROL 3 ML DEYVIAL IH ONE (14:32)
--- NOTE | 2018-01-31 14:56 | CPEKG ---
Heart Rate: 104 RR Interval: 577 P-R Interval: 184 QRSD Interval: 118 QT Interval: 376 QTC Interval: 495 P [place]: 69 QRS [place]: -103 T Wave [place]: -26 EKG Severity - ABNORMAL ECG - EKG Impression: SINUS TACHYCARDIA EKG Impression: IRBBB AND LPFB EKG Impression: INFERIOR INFARCT, AGE INDETERMINATE Electronically Signed By: Woo Diaz 31-Jan-2018 17:03:59
--- NOTE | 2018-01-31 15:29 | EDPHY ---
H & P Time Seen by Provider: 01/31/18 14:24 HPI/ROS: Chief complaint. Shortness of breath HPI. Patient is a 77-year-old male presents emergency department with increasing shortness of breath over the last couple days. Dry nonproductive cough. Does not think fever. Upper airway congestion recent treatment for sinusitis. He feels like he still getting a lot of postnasal drainage. He has had some nausea and vomiting and difficulty keeping oral fluids down. No abdominal pain however. No chest discomfort. Activities that he had done several weeks ago now make him short of breath. He was treated with Levaquin for recent sinusitis. Frequent falls. ROS Constitutional. Generalized weakness Eyes. no problems with vision ENT. Congestion Cardiovascular. no chest pain Respiratory. Shortness of breath on exertion Abdominal. no abdominal pain, no nausea/vomiting, no diarrhea . no problems urinating MS. no calf pain/swelling, no neck/back pain, no joint pain Skin. Abrasion left elbow secondary to fall Lymph. no swollen glands Neuro. Difficulty walking secondary to weakness Past Medical/Surgical History: Hypertension, COPD, bladder cancer, depression, atrial fibrillation, COPD Social History: , nonsmoker, no alcohol Smoking Status: Former smoker Physical Exam: General Appearance: Alert well-developed male moderate distress vital signs significant for blood pressure 87/76 Eyes: Pupils equal and round no pallor or injection. ENT, mucous membranes are dry. Patient has broken tooth without obvious swelling right lower mandible. Respiratory: There are no retractions, lungs are clear to auscultation. Cardiovascular: Regular rate and rhythm. Gastrointestinal: Abdomen is soft and nontender, no masses, bowel sounds normal. Neurological: Awake and alert, sensory and motor exams grossly normal. Skin: Warm and dry, no rashes. Musculoskeletal: Neck is supple nontender. Extremities symmetrical, full range of motion. Psychiatric: Patient is oriented X 3, there is no agitation. Constitutional: Initial Vital Signs Temperature (C) 36.7 C 01/31/18 14:39 Heart Rate 92 01/31/18 14:39 Respiratory Rate 20 01/31/18 14:39 Blood Pressure 87/76 L 01/31/18 14:39 O2 Sat (%) 94 01/31/18 14:39 O2 Delivery Mode Room Air Allergies/Adverse Reactions: Penicillins Allergy (Intermediate, Verified 01/31/18 14:37) Itching Home Medications: Medication Instructions Recorded Acetaminophen [Tylenol 325mg (*)] 650 mg PO Q4 PRN #0 tab 04/06/14 Abiraterone Acetate [Zytiga] 1,000 mg PO DAILY 08/21/17 Denosumab [Prolia] 60 mg SQ .QMONTHLY 08/21/17 Cetirizine HCl/Pseudoephedrine 1 each PO BID #20 tab.er.12h 01/26/18 [Zyrtec-D Tablet] Metoprolol Succinate 01/26/18 levOFLOXACIN [levAQUIN (*)] 500 mg PO DAILY #10 tab 01/26/18 Medical Decision Making - Diagnostics Imaging Results: Imaging Impressions Chest X-Ray 01/31/18 14:32 Impression: No pneumonia. Results reviewed with Dr. Miguel Weller at 4:00 PM. Chest x-ray interpreted by me shows multiple metastatic nodules. There does appear to be a pneumonia Procedures: IV normal saline. Septic workup ED Course/Re-evaluation: Severe sepsis declared now is initial lactate is 2.6 I consulted discussed case with Dr. Angulo, hospitalist, who agrees to the admission Patient also has a significantly elevated BUN and creatinine. He has previously had normal renal function. Patient and I discussed treatment plan including recommendation for admission. He expresses understanding and agrees Differential Diagnosis: At this point I do not see an obvious source of infection. I think the elevated lactate and hypo tension maybe due to severe dehydration. I think that the acute renal failure is also likely due to his dehydration. Plan is admission, hydration and possible antibiotics. - Data Points Laboratory Results: Laboratory Results 01/31/18 15:40 01/31/18 15:40 01/31/18 01/31/18 01/31/18 15:40 15:40 15:40 WBC 10.80 10^3/uL H 10^3/uL (3.80-9.50) RBC 4.39 10^6/uL L 10^6/uL (4.40-6.38) Hgb 14.2 g/dL g/dL (13.7-17.5) Hct 41.3 % % (40.0-51.0) MCV 94.1 fL fL (81.5-99.8) MCH 32.3 pg pg (27.9-34.1) MCHC 34.4 g/dL g/dL (32.4-36.7) RDW 13.3 % % (11.5-15.2) Plt Count 284 10^3/uL 10^3/uL (150-400) MPV 10.6 fL fL (8.7-11.7) Neut % (Auto) 74.1 % % (39.3-74.2) Lymph % (Auto) 11.9 % L % (15.0-45.0) [place] % (Auto) 10.8 % % (4.5-13.0) Eos % (Auto) 1.7 % % (0.6-7.6) Baso % (Auto) 0.6 % % (0.3-1.7) Nucleat RBC Rel Count 0.0 % % (0.0-0.2) Absolute Neuts (auto) 8.00 10^3/uL H 10^3/uL (1.70-6.50) Absolute Lymphs (auto) 1.29 10^3/uL 10^3/uL (1.00-3.00) Absolute Monos (auto) 1.17 10^3/uL H 10^3/uL (0.30-0.80) Absolute Eos (auto) 0.18 10^3/uL 10^3/uL (0.03-0.40) Absolute Basos (auto) 0.06 10^3/uL 10^3/uL (0.02-0.10) Absolute Nucleated RBC 0.00 10^3/uL 10^3/uL (0-0.01) Immature Gran % 0.9 % % (0.0-1.1) Immature Gran # 0.10 10^3/uL 10^3/uL (0.00-0.10) VBG Lactic Acid 2.6 mmol/L H mmol/L (0.7-2.1) Sodium 148 mEq/L H mEq/L (135-145) Potassium 3.7 mEq/L mEq/L (3.5-5.2) Chloride 106 mEq/L mEq/L (97-110) Carbon Dioxide 11 mEq/l L mEq/l (22-31) Anion Gap 31 mEq/L H mEq/L (8-16) BUN 67 mg/dL H mg/dL (7-23) Creatinine 3.6 mg/dL H mg/dL (0.7-1.3) Estimated GFR 17 Glucose 93 mg/dL mg/dL (70-100) Calcium 9.6 mg/dL mg/dL (8.5-10.4) Total Bilirubin 0.7 mg/dL mg/dL (0.1-1.4) Troponin I Pending NT-Pro-B Natriuret Pep Pending Medications Given: Discontinued Medications Albuterol/Ipratropium (Duoneb) 3 ml IH EDNOW ONE Stop: 01/31/18 14:33 Last Admin: 01/31/18 15:25 Dose: 3 ml Sodium Chloride (Ns) 1,000 mls @ 0 mls/hr IV ONCE ONE; Wide Open PRN Reason: Protocol Stop: 01/31/18 14:33 Last Admin: 01/31/18 15:38 Dose: 1,000 mls Sodium Chloride (Ns) 1,700 mls @ 3,400 mls/hr 30 ml/kg infuse over 30 min ( 1700 ml) IV EDNOW ONE PRN Reason: Protocol Stop: 01/31/18 16:26 Last Admin: 01/31/18 16:29 Dose: 1,700 mls Departure - Departure Disposition: [facility] In[facility] Acute Clinical Impression: Acute renal failure Qualifiers: Acute renal failure type: unspecified Qualified Code(s): N17.9 - Acute kidney failure, unspecified Condition: Fair
[2018-01-31 15:55] LABS: PLATELET COUNT 284 10^3/uL (150-400)
[2018-01-31] MEDS ORDERED: NS 1,700 ML IV ONE (15:57)
[2018-01-31] MEDS ORDERED: 1/2 NS 1,000 ML IV SCH (17:00)
[2018-01-31] MEDS ORDERED: NS 1,000 ML IV SCH (17:30)
[2018-01-31] MEDS: CEFEPIME HCL 1 GM in STERILE WATER INJ 11.3 ML IV SCH (18:20)
--- NOTE | 2018-01-31 18:32 | GHP ---
[f rep st] HISTORY AND PHYSICAL DATE OF ADMISSION: 01/31/2018 CHIEF COMPLAINT: Dyspnea and possible syncope. HISTORY OF PRESENT ILLNESS: The patient is a 77-year-old male with a history of metastatic bladder cancer, COPD and hypertension, who presents to the emergency department reporting shortness of breath, dizziness, and possible syncope. He denies fevers or chills. He denies cough. He was recently started on Levaquin for treatment of sinusitis. He has had a lot of postnasal drainage associated with this. He also reports a dental infection. He states he saw a holistic dentist who referred him to a special warfare combatant crewman. He has not been started on an antibiotic for this tooth infection other than the Levaquin he is taking for his sinuses. He reports poor oral intake over the past couple of days. Today, he began to feel lightheaded and dizzy. He states he stood up to take a couple of steps and "the lights when out." He found himself on the ground. He does not think he hit his head. He denies any preceding chest pain or heart palpitations. He feels his shortness of breath has gotten worse over the past several days. He notes he has been falling more frequently. He was diagnosed with bladder cancer in 1997. He was treated with radiation therapy in 1999 and then underwent chemotherapy with docetaxel in 2014. However, he did not tolerate this well and thus it was discontinued. He has since been followed by Dr. Lesli Pizarro and he takes Zytiga and prednisone. He has known metastases to his lungs as well as diffuse osseous metastatic disease. In the emergency department, he was hypotensive on arrival with a blood pressure of 87/76, with mild tachycardia. His heart rate has been 90s to 100. Sepsis workup ensued. He was given a 30 cc/kg fluid bolus, with an elevated lactate of 2.6, and he is admitted to the hospital for further management. PAST MEDICAL HISTORY: 1. 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 Lesli Pizarro as the [facility]. Bone scan in February 2017 showed evidence of metastases throughout the right glenoid, multiple vertebral bodies, and the thoracic and lumbar spine. 2. COPD. He does not use inhalers. 3. Hypertension. 4. Poor dentition with history of dental infections. 5. History of atrial fibrillation. 6. History of depression. 7. History of chronic fecal incontinence, secondary to radiation therapy for his prostate cancer. 8. Chronic anemia. 9. Lower extremity wounds. MEDICATIONS: Please see [employer] for completed outpatient medication list. ALLERGIES: Penicillin. SOCIAL HISTORY: Patient lives independently. He denies current tobacco use, but has a 30 pack-year history. FAMILY HISTORY: His sister has COPD. His parents are . REVIEW OF SYSTEMS: A 10-point review of systems was performed and is negative, except as per HPI. OBJECTIVE: VITAL SIGNS: Temperature is 36.7, blood pressure 87/76, heart rate 92, respiratory rate 20. He is 94% on room air. GENERAL: The patient is awake , alert and oriented, in no distress. HEENT: Head is atraumatic, normocephalic. Pupils equal, round, react to light. Extraocular muscles intact. Oropharynx is clear. Mucous membranes are dry. He has a likely dental infection in his 1st molar, with obvious decay and surrounding edema and pain. NECK: Supple there is no JVD. No cervical lymphadenopathy. HEART: Regular rate and rhythm. LUNGS: Clear to auscultation bilaterally, though he has very diminished breath sounds with decreased respiratory effort. ABDOMEN: Soft, nondistended, nontender. Normoactive bowel tones. EXTREMITIES: Without cyanosis, clubbing, or edema. NEUROLOGIC: Grossly nonfocal. LABORATORY DATA: CBC reveals a white blood cell count 10.8, with 74% neutrophils. Lactic acid is 2.6. Basic metabolic panel is remarkable for sodium of 148, potassium 37, CO2 is 11, BUN 67, creatinine 3.6, bilirubin is normal. Troponin is negative. NT proBNP is 938, which is lower than the last BNP of 2500 in 2014. Chest x-ray performed in the emergency department shows chronic elevation of the right hemidiaphragm, with scattered sclerotic bone metastases. There is no focal infiltrate, consolidation, or effusion. No pneumothorax or pulmonary parenchymal mass. EKG shows sinus tachycardia with an incomplete right bundle branch block and left posterior fascicular block. He has Q-waves in his inferior leads which are new from his previous EKG in 2014. ASSESSMENT AND PLAN: The patient is a 77-year-old male with history of metastatic bladder cancer, hypertension, and chronic obstructive pulmonary disease. Presents to the emergency department with hypotension, dyspnea, and suspected syncope. 1. Hypotension. His blood pressure is responsive to normal saline fluid bolus in the ED. This may represent volume depletion given his decreased oral intake. Also consider sepsis. Though he is afebrile, he presents with tachycardia, elevated lactate, and a white blood cell count of 10.8. His chest x-ray is not suggestive of pneumonia. Urinalysis is pending. He does have evidence of a dental infection which puts him at risk for bacteremia. Blood cultures are drawn. We will start him on cefepime plus Flagyl given his immunocompromised state, on chronic prednisone to cover for oral anaerobes and Pseudomonas. Also, consider PE, see below. 2. Possible syncope. This may have been a result of orthostasis. His blood pressure is improved with intravenous fluid bolus. Given his history of cancer and increased risk for thromboembolic disease, along with dyspnea, d dimer was checked and is markedly elevated at 9.8. He cannot undergo CTA due to elevated Cr. Will check a LE u/s to evaluate for DVT now and order V/Q scan for am. Symptoms and BP are improved so will defer heparin drip for now unless DVT study is positive. Also check echocardiogram to evaluate for right heart strain. 3. Acute kidney injury. His creatinine on arrival was 3.6 with a BUN of 67. He has no urgent dialysis needs. This is most likely a prerenal state given his hypotension on arrival. He is status post intravenous fluid bolus. We will continue intravenous fluids overnight, check a urine sodium and urine creatinine to calculate fractional excretion of sodium for further evaluation. If this is not trending down by morning with intravenous fluid resuscitation, I would recommend a renal consult. 4. Anion gap metabolic acidosis. This may be lactic acidosis versus starvation ketosis. We will continue intravenous fluids and consider sodium bicarb, though, I would like to see how he responds to volume resuscitation first to avoid rapid correction. 5. Bladder cancer with metastases to the lungs and bone. We will continue his Zytiga and prednisone, and alert Oncology of his admission. 6. Abnormal EKG. He has Q-waves in his inferior leads which are new from his last EKG. His initial troponin is negative. We will trend his troponin and check an echocardiogram to ensure no wall motion abnormality given his new Q- waves and presenting symptom of dyspnea. 7. Chronic obstructive pulmonary disease. He does not seem to be in acute exacerbation nor does he use inhalers at home. We will give him four times daily DuoNeb and continue his prednisone as above. 8. Hypertension. Hold outpatient antihypertensives due to hypotension on arrival. 9. Deep venous thrombosis prophylaxis. The patient is high risk. NITHIN, start tonight. CODE STATUS: Patient is full code. DISPOSITION: Patient admitted to inpatient status. I anticipate greater than 48 hours hospitalization for ongoing workup and management of his hypotension, syncope, and acute kidney injury. /[id number]/MODL MTDD
[2018-01-31 19:45] LABS: INR 1.32 (0.83-1.16); PROTIME(PATIENT) 16.6 SEC (12.0-15.0)
[2018-01-31] MEDS: IPRATROPIUM/ALBUTEROL 3 ML DEYVIAL IH SCH (20:37)
[2018-01-31] MEDS ORDERED: ONDANSETRON DISINTEGRATING 4 MG TAB PO PRN (22:24)
[2018-01-31] MEDS: CETIRIZINE 10 MG TAB PO SCH (22:35)
[2018-01-31] MEDS: ACETAMINOPHEN 325 MG TAB PO PRN (22:36)
[2018-01-31] MEDS: predniSONE 5 MG TAB PO SCH (22:36)
[2018-01-31] MEDS: PSEUDOEPHEDRINE HCL 120 MG EXT REL TAB PO SCH (22:36)
[2018-01-31] MEDS: HEPARIN 5,000 UNIT/0.5 ML SYR SC SCH (22:37)
[2018-01-31] MEDS ORDERED: POTASSIUM CL 20 MEQ TAB PO ONE (22:52)
[2018-01-31] MEDS ORDERED: SODIUM BICARBONATE 150 MEQ in D5W 1,000 ML IV SCH (23:00)
[2018-01-31] MEDS ORDERED: POTASSIUM CL 20 MEQ/15 ML UDCUP PO ONE (23:45)
[2018-02-01] MEDS: POTASSIUM Cl (KCl) 10 MEQ in NS 100 ML IV SCH ×6 (00:15→22:30)
[2018-02-01] MEDS: CETIRIZINE 10 MG TAB PO SCH ×2 (00:22→08:21)
[2018-02-01 04:26] LABS: PLATELET COUNT 164 10^3/uL (150-400)
[2018-02-01] MEDS: ACETAMINOPHEN 325 MG TAB PO PRN ×2 (04:26→22:21)
[2018-02-01] MEDS: IPRATROPIUM/ALBUTEROL 3 ML DEYVIAL IH SCH ×4 (05:42→21:09)
[2018-02-01] MEDS: HEPARIN 5,000 UNIT/0.5 ML SYR SC SCH ×3 (05:56→22:09)
[2018-02-01] MEDS: PSEUDOEPHEDRINE HCL 120 MG EXT REL TAB PO SCH (08:21)
[2018-02-01] MEDS: predniSONE 5 MG TAB PO SCH ×2 (08:21→22:09)
[2018-02-01] MEDS: CEFEPIME HCL 1 GM in STERILE WATER INJ 11.3 ML IV SCH (08:21)
[2018-02-01] MEDS ORDERED: ENOXAPARIN 40 MG/0.4 ML SYR SC SCH (09:00)
--- NOTE | 2018-02-01 10:17 | HOSPPROG ---
Hospitalist Progress Note Assessment/Plan: #hypotension, presumed sepsis, Bd cx pending, cefipime/flagyl IV, improved -possible dental source, poor dentition, vs recent sinus(s/p levaquin as outpt) - s/p fluid bolus -holding anti htn meds -FYI PCP cardiology is Dr Beard #syncope -likely from above #NESSA, likely pre-renal -responding well to IVF, creat 2 now #metastatic bladder cancer -FYI Dr Pizarro is PCP oncology -Dr Gr informed of admission but no indication for consult at this time #COPD -home meds/nebs #HTN -holding home meds #abnl EKG -trop trend OK -echo mild conc LV, EF 73%, nl wall motion #elev d dimer -neg LE US -low prob VQ scan #hypoK, hypomag, hypocalcium -replace per protocol #anemia -significant change from admission -no indication of acute bleeding, possible dilutional -follow closely/recheck in AM DNR, assist with proxy/POA dispo- anticipate > 2 mdnts bc of IV abx and NESSA, discussed assisted life transition vs SNF, pending PT/OT evals PCP- Dr Ellison VTE prophy- [facility] bc of NESSA, consider change to lovenox tomorrow depending upon renal function Subjective: Says feeling much better than yesterday. Has nasal congestion/PND, mucous upsets stomach. + N, no V. No children, older sister was POA but she last yr and he hasn't changed paperwork. Has a good friend listed as contact in chart, likely will ask niece in [place] to be proxy. Mild SOB, no CP. Objective: Vital Signs Temp Pulse Resp BP Pulse Ox 97.6 F 98 20 113/59 L 99 02/01/18 07:27 02/01/18 07:53 02/01/18 07:53 02/01/18 07:53 02/01/18 07:53 Laboratory Results 02/01/18 04:14 02/01/18 04:14 01/30/18 01/31/18 02/01/18 11:59 11:59 11:59 Intake Total 1380 Output Total 325 Balance 1055 PT 16.6 SEC (12.0-15.0) H 01/31/18 19:30 INR 1.32 (0.83-1.16) H 01/31/18 19:30 - Time Spent With Patient Time Spent with Patient: greater than 35 minutes Time Spent with Patient: Greater than 35 minutes spent on this patients care, greater than 50% of time spent counseling, educating, and coordinating care regarding the above mentioned plan. - Physical Exam Constitutional: no apparent distress, chronically ill appearing (frail) Eyes: anicteric sclera Ears, Nose, Mouth, Throat: moist mucous membranes Cardiovascular: regular rate and rhythym Respiratory: no respiratory distress, no rales or rhonchi Gastrointestinal: normoactive bowel sounds, No guarding, No rebound Skin: warm Psychiatric: interacting appropriately, not anxious, not encephalopathic, thought process linear ICD10 Worksheet Patient Problems: Problems Problem Status Onset Acute renal failure Acute Acute cholecystitis Acute Gallbladder & bile duct stone with obstruction Acute Prostate cancer Acute
--- NOTE | 2018-02-01 10:47 | PDMN ---
Medical Necessity Medical necessity: est los>2mn for hypotension, possible syncope, NESSA, AGMA, dental infection, and abnormal EKG; admit for IVF, tele, r/o PE r/t elevated d- dimer, IV abx, and trend troponin; comorbid bladder CA w/mets to lung and bone, COPD, HTN (hold meds); per order and H&P 01/31/18
--- NOTE | 2018-02-01 11:58 | WOCRNPDOC ---
[facility] Advanced Assessment Note - Skin Integrity Problem, Advanced Assess Right Posterior Head Abrasion Dressing Type: Open to Air Exudate Characteristic(s): Dried Natalie Wound Tissue: Intact Natalie Wound Swelling: None Wound Bed Color: Brown Wound Bed Constitution: Scab Site Measurement - Head-to-Toe Length X Width X Depth (cm): 1.2cmx1.4cmx scab Skin Integrity Problem Comment: Scab noted to right posterior aspect of patient' s head. Per his report, he hit his head during a recent fall at [facility] where he resides. Surrounding skin is intact and blanching with no erythema or swelling observed. Patient has too much hair to apply a dressing to this wound. Will have nursing apply Hydrogel daily to confer some moisture to the site. Wound care does not need to follow ongoing. Coccyx Dressing Type: Open to Air Integumentary Issue Intervention: Barrier Cream Applied (Calazime, applied by nursing) Natalie Wound Tissue: Blanching, Erythema, Denuded Skin Integrity Problem Comment: Raw, denuded skin noted throughout patient's coccyx and intergluteal cleft. There are scattered areas of erythema, all currently blanching and intact. Patient normally independent and mobile, but very thin w/ a BMI of 17.9. Will have nursing apply Calazime r/t denudement from stools. pastoral counselorPAWAN Collado initiated pressure-relieving interventions, and these are appropriate to continue given patient's current situation. Wound care does not need to follow ongoing.
[2018-02-01] MEDS ORDERED: CEPACOL LOZENGE PO PRN (12:42)
[2018-02-01] MEDS: Abiraterone Acetate [Zytiga] 1,000 MG PO SCH (13:03)
[2018-02-01] MEDS: ONDANSETRON 4 MG/2 ML VIAL IVP PRN (13:10)
--- NOTE | 2018-02-01 14:09 | ECHO ---
[email or web address] [address] [address] Main: [phone] Fax: Transthoracic Echocardiogram Name: SHAWN CORTES MR#: [id number] Study Date: 02/01/2018 Study Time: 09:51 AM Date of : 1940 Age: 77 year(s) Height: 177.8 cm (70 in.) Weight: 56.7 kg (125 lb.) BSA: 1.71 m2 Gender: Male Examination: Echo Indication: Dyspnea/new Q waves on EKG, seen by [facility] Image Quality: Technically Difficult Contrast: Requested by: Macrina Angulo BP: 115 mmHg/70 mmHg Heart Rate: Rhythm: Indication: Dyspnea/new Q waves on EKG, seen by [facility] Procedure Staff Student Activities Director: Judith Billings RDCS Reading Physician: Darryl Calvillo MD Requesting Provider: Conclusions: Normal size left ventricle. Mild concentric LV hypertrophy. EF is 73 %. No regional wall motion abnormality. Grade 1 diastolic dysfunction (abnormal relaxation). Mild age-related valvular changes. Mild tricuspid regurgitation. Measurements: Chambers Valvular Assessment AV/MV Valvular Assessment TV/PV Normal Normal Normal Name Value Range Name Value Range Name Value Range Ao Lisa (MM): 3.8 cm (2.2 cm-3.7 AV meanP mmHg ( - ) cm) MV E Vmax: 0.69 m/s ( - ) IVSd (2D): 1.0 cm (0.6 cm-1.1 MV A Vmax: 1.09 m/s ( - ) cm) MV E/A: 0.63 ( - ) LVDd (2D): 3.6 cm (4.2 cm-5.9 cm) LVDs (2D): 2.1 cm (2.1 cm-4 cm) LVPWd (2D): 0.8 cm (0.6 cm-1 cm) LVEF (2D): 73 (>=54 %) Continued Measurements: Valvular Assessment AV/MV Name Value MV E/E' Septal: 15.60 MV E/E' Lateral: 11.40 Patient: SHAWN CORTES Study Date: 02/01/2018 Page 1 of 2 09:51 AM Findings: Left Ventricle: Normal size left ventricle. Mild concentric LV hypertrophy. Global hypercontractility of the left ventricle. EF is 73 %. No regional wall motion abnormality. Grade 1 diastolic dysfunction (abnormal relaxation). Right Ventricle: Normal size right ventricle. Left Atrium: The left atrium is normal in size. Right Atrium: The right atrium is normal in size. Mitral Valve: The mitral valve is normal in appearance and function. Aortic Valve: The aortic valve is normal in appearance and function. Mildly calcific NCC of the aortic valve.. Tricuspid Valve: The tricuspid valve is normal in appearance and function. Mild tricuspid regurgitation is present. Pulmonic Valve: The pulmonic valve is normal in appearance and function. Aorta: The aorta is normal. Pericardium: No pericardial effusion. There is pericardial fat. (No Signature Object) Patient: SHAWN CORTES Study Date: 02/01/2018 Page 2 of 2 09:51 AM [id number]
[2018-02-01] MEDS ORDERED: PROTOCOL POTASSIUM 1 DOSE MISC PRN (15:06)
[2018-02-01] MEDS ORDERED: PROTOCOL MAGNESIUM 1 DOSE IV PRN (15:06)
[2018-02-01] MEDS ORDERED: PROTOCOL CALCIUM 1 DOSE IV PRN (15:11)
[2018-02-01] MEDS ORDERED: MAGNESIUM SULF 2 GM/WATER 50 ML IV ONE (15:56)
[2018-02-01] MEDS ORDERED: POTASSIUM CL IV SCH (16:00)
[2018-02-01] MEDS ORDERED: NS IV SCH (16:00)
--- NOTE | 2018-02-01 17:24 | ASMTCMCOM ---
CM Note CM Note Notes: Pt admitted w/hypotension, possible syncope, dental infection & abnormal EKG r/o PE. Hx of bladder cancer w/mets to lung & bone. Pt normally lives independently. PT/OT ordered; awaiting eval. CM will follow. Date Signed: 02/01/2018 05:23 PM Electronically Signed By:Ml Chao RN
[2018-02-01] MEDS ORDERED: CALCIUM GLUCONATE 1 GM in D5W 50 ML IV ONE (19:30)
[2018-02-01] MEDS ORDERED: CALCIUM GLUCONATE 50 ML IV ONE (21:00)
[2018-02-02] MEDS ORDERED: POTASSIUM CL 20 MEQ/15 ML UDCUP PO ONE (01:29)
[2018-02-02] MEDS: HEPARIN 5,000 UNIT/0.5 ML SYR SC SCH ×3 (05:30→21:53)
[2018-02-02] MEDS: IPRATROPIUM/ALBUTEROL 3 ML DEYVIAL IH SCH ×4 (05:37→20:17)
[2018-02-02 07:47] LABS: PLATELET COUNT 143 10^3/uL (150-400)
[2018-02-02] MEDS ORDERED: POTASSIUM CL 10 MEQ TAB PO ONE ×2 (08:49→22:17)
[2018-02-02] MEDS: predniSONE 5 MG TAB PO SCH ×2 (08:59→21:55)
[2018-02-02] MEDS: CEFEPIME HCL 1 GM in STERILE WATER INJ 11.3 ML IV SCH (09:00)
[2018-02-02] MEDS: ACETAMINOPHEN 325 MG TAB PO PRN (09:00)
[2018-02-02] MEDS: Abiraterone Acetate [Zytiga] 1,000 MG PO SCH ×2 (09:01→12:17)
[2018-02-02] MEDS ORDERED: MAGNESIUM SULF 1 GM/DEXTROSE 100 ML IV ONE (10:11)
--- NOTE | 2018-02-02 14:15 | HOSPPROG ---
Hospitalist Progress Note Assessment/Plan: #hypotension, improved with IVF's. Possible sepsis (?2/2 dental infection). Presented with elevated lactate. Currently on cefipime/flagyl IV. -BCx's NGTD, PCT low risk. -suspect dental infection lower right molar vs sinus infection (s/p levaquin as outpt) -de-escalate atbx to oral augmentin -outpt dental f/u planned, pt has appt -holding anti htn meds #syncope -likely from above #NESSA, likely pre-renal -responding well to IVF, creatinine normalized today #hypernatremia - 2L free water deficit -D5W today at 75 / hr, recheck in am #metastatic bladder cancer -ERLINDA Pizarro is PCP oncology -Dr Gr informed of admission but no indication for consult at this time #dental +/- sinus infection - symptoms are a bit concerning -facial CT to r/o mass / neoplasm / abscess #COPD -home meds/nebs #HTN -holding home meds #abnl EKG -trop trend OK -echo mild conc LV, EF 73%, nl wall motion #elev d dimer -neg LE US -low prob VQ scan #hypoK, hypomag, hypocalcium -replace per protocol #anemia - suspect he was hemoconcentrated on admission. H&H relatively stable today. -follow closely/recheck in AM DNR, assist with proxy/POA dispo- cont inpt, likely needs SNF, f/u ongoing PT/OT recs PCP- Dr Ellison VTE prophy- NITHIN Subjective: PT feels much better. Sinus symptoms improved, less drainage, but ongoing issue with green drainage and pain. Still some tooth pain. No fevers. Weak. appetite improving. He admits to not taking good care of himself, poor oral intake prior to admission. Objective: Vital Signs Temp Pulse Resp BP Pulse Ox 36.6 C 108 H 18 97/53 L 98 02/02/18 08:27 02/02/18 12:00 02/02/18 12:00 02/02/18 12:00 02/02/18 12:00 Laboratory Results 02/02/18 07:20 02/02/18 07:20 02/01/18 02/02/18 02/03/18 05:59 05:59 05:59 Intake Total 846 1807 Output Total 325 1450 Balance 521 357 PT 16.6 SEC (12.0-15.0) H 01/31/18 19:30 INR 1.32 (0.83-1.16) H 01/31/18 19:30 - Physical Exam Constitutional: chronically ill appearing Eyes: PERRL Ears, Nose, Mouth, Throat: moist mucous membranes, poor dentition, other (right lower molar decayed to base of tooth with surrounding erythema of mucosa, +pain) Cardiovascular: regular rate and rhythym Respiratory: no respiratory distress, clear to auscultation Gastrointestinal: normoactive bowel sounds, soft, non-tender abdomen Skin: warm Musculoskeletal: full muscle strength Neurologic: AAOx3 Psychiatric: interacting appropriately ICD10 Worksheet Patient Problems: Problems Problem Status Onset Acute renal failure Acute Acute cholecystitis Acute Gallbladder & bile duct stone with obstruction Acute Prostate cancer Acute
[2018-02-02] MEDS ORDERED: D5W 1,000 ML IV SCH (14:30)
[2018-02-02] MEDS ORDERED: AMOXICILLIN/CLAVULANATE POT 875/125 MG TAB PO SCH (14:45)
[2018-02-02] MEDS: ONDANSETRON 4 MG/2 ML VIAL IVP PRN (22:09)
[2018-02-02] MEDS: AMOX/CLAVUL 600 MG/5 ML 125 ML BULK BTL PO SCH (22:43)
[2018-02-03] MEDS ORDERED: CYCLOBENZAPRINE 10 MG TAB PO PRN (02:19)
[2018-02-03] MEDS: IPRATROPIUM/ALBUTEROL 3 ML DEYVIAL IH SCH ×4 (04:55→21:43)
[2018-02-03] MEDS: HEPARIN 5,000 UNIT/0.5 ML SYR SC SCH ×3 (06:15→22:20)
[2018-02-03] MEDS ORDERED: POTASSIUM CL 10 MEQ TAB PO ONE (07:56)
[2018-02-03] MEDS ORDERED: MAGNESIUM SULF 2 GM/WATER 50 ML IV ONE (07:56)
[2018-02-03] MEDS ORDERED: CALCIUM GLUCONATE 50 ML IV ONE (07:57)
[2018-02-03] MEDS ORDERED: CALCIUM GLUCONATE 1 GM in D5W 50 ML IV ONE (08:15)
[2018-02-03] MEDS ORDERED: PROTOCOL K PHOSPHATE 1 DOSE IV PRN (09:19)
--- NOTE | 2018-02-03 09:35 | HOSPPROG ---
Hospitalist Progress Note Assessment/Plan: #hypotension, improved. Possible sepsis, presented with elevated lactate, suspect dental infection right lower molar vs sinusitis. -BCx's NGTD, PCT low risk. -cont oral augmentin -outpt dental f/u planned, pt has appt -holding anti htn meds #dental / sinus infection - Face CT neg for abscess, +left maxillary sinusitis, symptoms improved -cont augmentin, dental f/u as above #possible syncope -likely from above #NESSA, likely pre-renal, normalized with IVF's #hypernatremia - normalized with D5W yesterday, follow #metastatic bladder cancer -ERLINDA Pizarro is PCP oncology -Dr Gr informed of admission but no indication for consult at this time #COPD -home meds/nebs #HTN -holding home metoprolol #abnl EKG -trop trend OK -echo mild conc LV, EF 73%, no WMA #elev d dimer -neg LE US -low prob VQ scan #hypoK, hypomag, hypocalcium, hypophos -replace per protocol #anemia - suspect he was hemoconcentrated on admission, though this seems new, hgb was normal, now 9.6. -check iron studies, hemoccult -?last colonoscopy DNR, assist with proxy/POA dispo- cont inpt, likely needs SNF, f/u ongoing PT/OT recs, CM assistance requested for possible rehab needs vs home care. aim for d/c tomorrow. PCP- Dr Ellison VTE prophy- NITHIN Subjective: PT feels much better. Appetite improved. Still a bit weak. He is using a condom cath past 2 days, incontinence. No fevers. Sinus and tooth pain are iproved. Objective: Vital Signs Temp Pulse Resp BP Pulse Ox 36.4 C 114 H 14 106/70 93 02/03/18 04:00 02/03/18 04:00 02/03/18 04:55 02/03/18 04:00 02/03/18 04:55 Laboratory Results 02/03/18 06:05 02/03/18 06:05 02/02/18 02/03/18 02/04/18 05:59 05:59 05:59 Intake Total 1807 2272 Output Total 1450 750 Balance 357 1522 PT 16.6 SEC (12.0-15.0) H 01/31/18 19:30 INR 1.32 (0.83-1.16) H 01/31/18 19:30 - Physical Exam Constitutional: chronically ill appearing Eyes: PERRL Ears, Nose, Mouth, Throat: moist mucous membranes Cardiovascular: regular rate and rhythym Respiratory: no respiratory distress, clear to auscultation Gastrointestinal: normoactive bowel sounds, soft, non-tender abdomen Skin: warm Musculoskeletal: generalized weakness Neurologic: AAOx3 Psychiatric: interacting appropriately ICD10 Worksheet Patient Problems: Problems Problem Status Onset Acute renal failure Acute Acute cholecystitis Acute Gallbladder & bile duct stone with obstruction Acute Prostate cancer Acute
[2018-02-03] MEDS: predniSONE 5 MG TAB PO SCH ×2 (10:06→22:20)
[2018-02-03] MEDS: AMOX/CLAVUL 600 MG/5 ML 125 ML BULK BTL PO SCH ×2 (10:07→22:21)
[2018-02-03] MEDS ORDERED: K PHOS 10 MMOL in D5W 250 ML IV ONE (12:00)
--- NOTE | 2018-02-03 15:23 | ASMTCMCOM ---
CM Note CM Note Notes: Chart reviewed. Patient has been living at [facility] . He has had falls and is incontinent at time. Admitted with profound dehydration and pneumonia. Met with patient to discuss need for SNF/Rehab at discharge to strengthen him before returning to [facility] living. He is agreeable to referrals to all but [facility]. He also has questions about his medicaid. I will ask financial counseling to come see him. CM to follow. Date Signed: 02/03/2018 03:22 PM Electronically Signed By:Kristen Mccabe RN
[2018-02-03] MEDS: CALCIUM CARBONATE 500 MG CHEWABLE TAB PO SCH ×2 (16:40→22:20)
[2018-02-03] MEDS: Abiraterone Acetate [Zytiga] 1,000 MG PO SCH (16:41)
[2018-02-04] MEDS: ACETAMINOPHEN 325 MG TAB PO PRN (05:09)
[2018-02-04] MEDS: HEPARIN 5,000 UNIT/0.5 ML SYR SC SCH (05:09)
[2018-02-04] MEDS: IPRATROPIUM/ALBUTEROL 3 ML DEYVIAL IH SCH ×2 (05:24→13:24)
[2018-02-04 05:32] VITALS: RESP 18
[2018-02-04] MEDS: predniSONE 5 MG TAB PO SCH (08:14)
[2018-02-04] MEDS: CALCIUM CARBONATE 500 MG CHEWABLE TAB PO SCH (08:14)
[2018-02-04] MEDS: AMOX/CLAVUL 600 MG/5 ML 125 ML BULK BTL PO SCH (08:14)
[2018-02-04] MEDS: Abiraterone Acetate [Zytiga] 1,000 MG PO SCH (09:48)
[2018-02-04] MEDS ORDERED: MAGNESIUM SULF 1 GM/DEXTROSE 100 ML IV ONE (10:00)
[2018-02-04] MEDS ORDERED: CALCIUM GLUCONATE 1 GM in D5W 50 ML IV ONE (11:00)
[2018-02-04] MEDS ORDERED: METOPROLOL TARTRATE 25 MG TAB PO SCH (11:15)
[2018-02-04 13:20] VITALS: BP 129/77; PULSE 74; TEMP 98.1; O2SAT 98
--- NOTE | 2018-02-04 15:46 | PDIAF ---
- Diagnosis Diagnosis: metastatic bladder cancer Code Status: Do Not Resuscitate - Medication Management Discharge Medications: Medications to Continue on Transfer Abiraterone Acetate [Zytiga] 1,000 mg PO DAILY 08/21/17 [Last Taken Unknown] Denosumab [Prolia] 60 mg SQ Q90D 08/21/17 [Last Taken 12/16/17] Cetirizine HCl/Pseudoephedrine [Zyrtec-D Tablet] 1 each PO BID #20 tab.er.12h [Last Taken 01/30/18] Leuprolide Acetate [Eligard 22.5 mg (*)] 22.5 mg SC Q90D 01/31/18 [Last Taken ] Metoprolol Tartrate [Lopressor 50 mg (*)] 25 mg PO BID 01/31/18 [Last Taken 10/09] predniSONE 5 mg PO BID 01/31/18 [Last Taken 01/30/18] Amox Tr/Potassium Clavulanate [Augmentin ES 600 MG/5 ML (*)] 875 mg PO BID #14 bottle 02/04/18 [Last Taken Unknown] Calcium Carbonate [Tums 500MG (*)] 500 mg PO TID tab.chew 02/04/18 [Last Taken Unknown] Discharge Medications: Refer to the Discharge Home Medication list for PRN reason. - Orders Services needed: Home Care, Registered Nurse, Certified Health Lead, Master Benefits Advisor, Physical Therapy, Occupational Therapy Home Care Face to Face: I certify that this patient was under my care and that I had the required [id number] encounter meeting the encounter requirements on the discharge day. My findings support the fact that the patient is homebound as defined in Home Care Face to Face Continued: CMS Chapter 7 Medicare Benefits Manual 30.1.1 , The condition of the patient is such that there exists a normal inability to leave home and consequently, leaving home would require a considerable and taxing effort. Isolation Type: None Diet Recommendation: no restrictions on diet - Follow Up Care Current Providers and Referrals: María Elena Ellison MD [Primary Care Provider] - As per Instructions
--- NOTE | 2018-02-04 16:36 | GDS ---
[f rep st] DISCHARGE SUMMARY DISCHARGE DIAGNOSES: 1. Hypotension, likely secondary to volume depletion; resolved. 2. Dental infection. 3. Sinusitis. 4. Acute kidney injury, resolved. 5. Hypernatremia, resolved. 6. Metastatic bladder cancer. 7. Chronic obstructive pulmonary disease. 8. Electrolyte abnormalities including hypokalemia, hypomagnesemia, hypocalcemia, and hypophosphatem ia, likely secondary to malnutrition; improved. HISTORY: For details, please see History and Physical dated January 31, 2018. In brief, the patient i s a 77-year-old male with metastatic bladder cancer, who presented to the hospital with dyspnea and p ossible syncope. He was hypotensive on arrival with a blood pressure of 80s over 70s, with mild tach ycardia. Sepsis workup ensued. He was found to have an elevated lactate of 2.6. He was admitted to the hospital for further management of possible sepsis. HOSPITAL COURSE: Patient was admitted to the Medical/Surgical unit. His blood pressure was fluid re sponsive with normal saline boluses. His lactate trended down. He was initially treated with cefepi me and Flagyl given his immunocompromised state, on chronic prednisone, to cover for oral anaerobes a nd possible Pseudomonas. He does have evidence of a dental infection and was also recently treated f or sinusitis with Levaquin. He underwent facial CT, which was negative for a dental abscess but did reveal left-sided sinusitis. He appeared markedly volume depleted and admitted to poor self-care leading up to this hospitalizati on. I actually doubt he had sepsis and suspect this was more related to volume depletion, though he does likely have underlying dental infection and sinusitis. His blood cultures were negative. His a ntibiotics were de-escalated to oral Augmentin. His volume status and strength continued to improve. Of note, a D-dimer was also checked on admission given his dyspnea and possible syncope in the sett ing of a reported fall. This was elevated, though he was unable to undergo CT pulmonary angiogram du e to his elevated creatinine. A lower extremity ultrasound was negative for DVT. A V/Q scan of the lungs was low probability for PE. His creatinine did normalize with IV fluids, with an admission cre atinine of 3.6 and a discharge creatinine of 0.8. A renal us was negative for mass or obstruction. At this time, he has no symptoms of pulmonary embolism. He is 98% on room air with a heart rate of 7 4. He has had no further hypotension. Again, I think most of his presentation was related to volume depletion. DISPOSITION: Patient is discharged home with home health care services including RN PT, OT, social w ork, and MAT WORKER. DISCHARGE MEDICATIONS: Please see [facility] for completed outpatient medication list. New medications on discharge include: 1. Augmentin 875 p.o. twice daily for 7 more days. 2. Tums 500 mg p.o. three times daily. He will continue all other outpatient medications as previously prescribed. Levaquin and ibuprofen a re discontinued. FOLLOWUP: 1. A dentist as soon as possible for his right lower molar suspected dental infection. 2. María Elena Ellison MD, primary care. /[id number]/MODL
== END 2018-02-04 14:45 | disposition home health service (06) | DRG 158 ==
LOC: EDUNIT# → F1N 17:38
PROVIDERS: ADMIT Hospitalist; ATTEND Hospitalist
DX: K04.7 Periapical abscess without sinus (principal); J32.9 Chronic sinusitis, unspecified; N17.9 Acute kidney failure, unspecified; I95.9 Hypotension, unspecified; E87.0 Hyperosmolality and hypernatremia; E46 Unspecified protein-calorie malnutrition; J44.9 Chronic obstructive pulmonary disease, unspecified; E87.6 Hypokalemia; E83.42 Hypomagnesemia; I48.91 Unspecified atrial fibrillation; C78.00 Secondary malignant neoplasm of unspecified lung; C79.51 Secondary malignant neoplasm of bone; Z85.51 Personal history of malignant neoplasm of bladder; Z87.891 Personal history of nicotine dependence; Z66 Do not resuscitate
CPT/HCPCS: 97116-GP; 97162-GP; 97165-GO; 97530-GP; 97535-GO; A9540; G8978-GP-CK; G8979-GP-CI; G8987-GO-CJ; G8988-GO-CI; J0610; J0692; J1644; J2405; J3475; J3480; J7512

== ENCOUNTER 2019-02-02 09:49 | Inpatient (IN) | payer OTHER ==
[2019-02-02] MEDS ORDERED: NS 1,000 ML IV ONE (10:06)
--- NOTE | 2019-02-02 10:10 | EDPHY ---
H & P Stated Complaint: Weakness and chest tightness c congestion x3D Time Seen by Provider: 02/02/19 10:08 HPI/ROS: CHIEF COMPLAINT: Mild headache, sore throat, dyspnea and dizziness HISTORY OF PRESENT ILLNESS: The patient has a history of stage IV prostate cancer presents to the ED with a 3 day history of mild headache, sore throat, dyspnea, dehydration and dizziness. The patient denies any history of fall. He is anticoagulated with Coumadin for chronic AFib. He denies any acute abdominal pain. He denies fever or dysuria. The patient does feel clinically dehydrated. The patient denies any focal neurologic symptoms. REVIEW OF SYSTEMS: A comprehensive 10 point review of systems is otherwise negative aside from elements mentioned in the history of present illness. Source: Patient Exam Limitations: No limitations - Personal History Current Tetanus/Diphtheria Vaccine: Yes Tetanus Vaccine Date: <5 years - Medical/Surgical History Hx Asthma: No Hx Chronic Respiratory Disease: Yes Hx Diabetes: No Hx Cardiac Disease: No Hx Renal Disease: No Hx Cirrhosis: No Hx Alcoholism: No Hx HIV/AIDS: No Hx Splenectomy or Spleen Trauma: No Other PMH: medical HTN, COPD, Bladder Cancer, depression, Prostatectomy, tonsillectomy, episode of afib copd, gall bladder removed - Family History Significant Family History: No pertinent family hx - Social History Smoking Status: Former smoker - Physical Exam Exam: General Appearance: Frail male, cachectic, no acute distress Eyes: Pupils equal and round no pallor or injection ENT, Mouth: Poor dentition, markedly dry mucous membranes Respiratory: Crackles bilateral lung bases Cardiovascular: Irregular rate, 2/6 systolic ejection murmur Gastrointestinal: Abdomen is soft and nontender, no masses, bowel sounds normal Neurological: A&O, normal motor function, normal sensory exam, normal cranial nerves Skin: Warm and dry, no rashes Musculoskeletal: Kyphosis, no midline tenderness Extremities: symmetrical, full range of motion Constitutional: Initial Vital Signs Temperature (C) 36.2 C 02/02/19 10:03 Heart Rate 92 02/02/19 10:03 Respiratory Rate 18 02/02/19 10:03 Blood Pressure 160/106 H 02/02/19 10:03 O2 Sat (%) 99 02/02/19 10:03 O2 Delivery Mode Room Air Allergies/Adverse Reactions: Penicillins Allergy (Intermediate, Verified 02/02/19 10:03) Itching Home Medications: Medication Instructions Recorded Abiraterone Acetate [Zytiga] 1,000 mg PO DAILY 08/21/17 Denosumab [Prolia] 60 mg SQ Q90D 08/21/17 Cetirizine HCl/Pseudoephedrine 1 each PO BID #20 tab.er.12h 01/26/18 [Zyrtec-D Tablet] Leuprolide Acetate [Eligard 22.5 22.5 mg SC Q90D 01/31/18 mg (*)] Metoprolol Tartrate [Lopressor 50 25 mg PO BID 01/31/18 mg (*)] predniSONE 5 mg PO BID 01/31/18 Amox Tr/Potassium Clavulanate 875 mg PO BID #14 bottle 02/04/18 [Augmentin ES 600 MG/5 ML (*)] Calcium Carbonate [Tums 500MG (*)] 500 mg PO TID tab.chew 02/04/18 Medical Decision Making - Diagnostics EKG Interpretation: EKG: Complete interpretation has been separately recorded in the [email or web address] archive. Summary impression: Atrial fibrillation, right bundle branch block, nonspecific ST T wave changes noted Imaging Results: Imaging Impressions Head CT 02/02/19 10:07 Impression: 1. Moderately advanced senescent features, with no acute intracranial abnormality. 2. Osteoblastic metastatic disease. 3. Chronic left maxillary sinusitis, marginally improved from 02/02/2018. If there is further clinical concern regarding the patient's symptoms, MR imaging is suggested, if not otherwise contraindicated. Findings were discussed with Alexandre Weller MD at 10:45, on 02/02/2019. Chest x-ray PA lateral: Images reviewed by myself and discussed with radiologist. Impression: Diffuse metastatic disease noted. No evidence of focal infiltrate. ED Course/Re-evaluation: ED course: Patient presents the ED with multiple complaints primarily surrounding failure to thrive. He has had nausea, retching, decreased appetite, worsening of a dry nonproductive cough and a slight headache. The patient is chronically anticoagulated. He did not have a history of fall or trauma. CT scan of the head demonstrates no evidence of an intracranial hemorrhage. The patient's chest x-ray demonstrates no evidence of pneumonia but does demonstrate diffuse metastatic disease. Patient is quite dehydrated with an elevated BUN of 30 and a creatinine of 1. The patient received IV fluid rehydration and IV Zofran in the emergency department. He had serial examinations by myself over a 3 hr period. The patient continues to feel quite dehydrated week and has requested admission to the hospital as he does not feel that he can safely be discharged home. The patient's flu test is negative. Consultation is made with the hospitalist service. The patient will be admitted this evening. Differential Diagnosis: Differential diagnosis considered includes dehydration, metabolic abnormality, pneumonia, intracranial hemorrhage, worsening metastatic disease - Data Points Laboratory Results: Laboratory Results 02/02/19 Unknown 02/02/19 Unknown 02/02/19 02/02/19 02/02/19 Unknown Unknown Unknown WBC 16.49 10^3/uL H 10^3/uL (3.80-9.50) RBC 4.16 10^6/uL L 10^6/uL (4.40-6.38) Hgb 12.8 g/dL L g/dL (13.7-17.5) Hct 41.6 % % (40.0-51.0) MCV 100.0 fL H fL (81.5-99.8) MCH 30.8 pg pg (27.9-34.1) MCHC 30.8 g/dL L g/dL (32.4-36.7) RDW 13.9 % % (11.5-15.2) Plt Count 443 10^3/uL H 10^3/uL (150-400) MPV 10.0 fL fL (8.7-11.7) Neut % (Auto) 82.2 % H % (39.3-74.2) Lymph % (Auto) 7.4 % L % (15.0-45.0) Thurston % (Auto) 9.0 % % (4.5-13.0) Eos % (Auto) 0.2 % L % (0.6-7.6) Baso % (Auto) 0.5 % % (0.3-1.7) Nucleat RBC Rel Count 0.0 % % (0.0-0.2) Absolute Neuts (auto) 13.56 10^3/uL H 10^3/uL (1.70-6.50) Absolute Lymphs (auto) 1.22 10^3/uL 10^3/uL (1.00-3.00) Absolute Monos (auto) 1.48 10^3/uL H 10^3/uL (0.30-0.80) Absolute Eos (auto) 0.04 10^3/uL 10^3/uL (0.03-0.40) Absolute Basos (auto) 0.08 10^3/uL 10^3/uL (0.02-0.10) Absolute Nucleated RBC 0.00 10^3/uL 10^3/uL (0-0.01) Immature Gran % 0.7 % % (0.0-1.1) Immature Gran # 0.11 10^3/uL H 10^3/uL (0.00-0.10) PT 16.7 SEC H SEC (12.0-15.0) INR 1.42 H (0.83-1.16) Sodium 141 mEq/L mEq/L (135-145) Potassium 4.3 mEq/L mEq/L (3.5-5.2) Chloride 111 mEq/L H mEq/L (97-110) Carbon Dioxide 10 mEq/l L mEq/l (22-31) Anion Gap 20 mEq/L H mEq/L (6-14) BUN 31 mg/dL H mg/dL (7-23) Creatinine 1.2 mg/dL mg/dL (0.7-1.3) Estimated GFR 59 Glucose 96 mg/dL mg/dL (70-100) Calcium 8.7 mg/dL mg/dL (8.5-10.4) Total Bilirubin 0.7 mg/dL mg/dL (0.1-1.4) Conjugated Bilirubin 0.4 mg/dL mg/dL (0.0-0.5) Unconjugated Bilirubin 0.3 mg/dL mg/dL (0.0-1.1) AST 18 IU/L IU/L (17-59) ALT 16 IU/L L IU/L (21-72) Alkaline Phosphatase 80 IU/L IU/L (38-126) Total Protein 7.7 g/dL g/dL (6.3-8.2) Albumin 4.6 g/dL g/dL (3.5-5.0) Lipase 263 IU/L IU/L (23-300) Nasal Influenza A PCR Nasal Influenza B PCR 02/02/19 10:30 WBC RBC Hgb Hct MCV MCH MCHC RDW Plt Count MPV Neut % (Auto) Lymph % (Auto) Thurston % (Auto) Eos % (Auto) Baso % (Auto) Nucleat RBC Rel Count Absolute Neuts (auto) Absolute Lymphs (auto) Absolute Monos (auto) Absolute Eos (auto) Absolute Basos (auto) Absolute Nucleated RBC Immature Gran % Immature Gran # PT INR Sodium Potassium Chloride Carbon Dioxide Anion Gap BUN Creatinine Estimated GFR Glucose Calcium Total Bilirubin Conjugated Bilirubin Unconjugated Bilirubin AST ALT Alkaline Phosphatase Total Protein Albumin Lipase Nasal Influenza A PCR NEGATIVE FOR FLU A (NEGATIVE) Nasal Influenza B PCR NEGATIVE FOR FLU B (NEGATIVE) Medications Given: Discontinued Medications Sodium Chloride (Ns) 1,000 mls @ 0 mls/hr IV EDNOW ONE; Wide Open PRN Reason: Protocol Stop: 02/02/19 10:07 Last Admin: 02/02/19 10:28 Dose: 1,000 mls Departure - Departure Disposition: [facility] Inpatient Acute Clinical Impression: Prostate cancer, Dehydration, Bronchitis Condition: Fair Referrals: Patient,NotPresent [Unknown] - As per Instructions
[2019-02-02 10:18] LABS: PLATELET COUNT 443 10^3/uL (150-400)
--- NOTE | 2019-02-02 10:18 | CPEKG ---
Test Reason : OPEN Blood Pressure : / mmHG Vent. Rate : 133 BPM Atrial Rate : 165 BPM P-R Int : 139 ms QRS Dur : 121 ms QT Int : 358 ms P-R-T Axes : 080 258 -06 degrees QTc Int : 533 ms Sinus tachycardia Ventricular bigeminy undle branch blockRight bundle branch block Inferior infarct, old Lateral leads are also involved Confirmed by Alexandre Weller ([id number]) on 02/02/2019 10:18:11 AM Referred By: Alexandre Weller Confirmed By:Alexandre Weller
[2019-02-02 10:26] LABS: INR 1.42 (0.83-1.16); PROTIME(PATIENT) 16.7 SEC (12.0-15.0)
[2019-02-02] MEDS ORDERED: ONDANSETRON 4 MG/2 ML VIAL IVP PRN (15:01)
[2019-02-02] MEDS ORDERED: ONDANSETRON DISINTEGRATING 4 MG TAB PO PRN (15:01)
[2019-02-02] MEDS ORDERED: TETRAHYDROZOLINE 0.05% 15 ML OPHT.BTL OP PRN (15:02)
[2019-02-02] MEDS: D5W LR 1,000 ML IV SCH (15:30)
--- NOTE | 2019-02-02 15:36 | GHP ---
[f rep st] HISTORY AND PHYSICAL DATE OF ADMISSION: 02/02/2019 CHIEF COMPLAINT: Dehydrated. HISTORY OF PRESENT ILLNESS: This is a 78-year-old man with metastatic prostate cancer who presents w ith dehydration. He has had an upper respiratory illness including sinusitis, runny nose, and sore t hroat. He has not fainted. He tells me that he has not been able to eat very well since he has so m uch congestion that is going down his throat. He has not eaten very well for about 3 days. He has n ot actually been throwing up, but he does retch somewhat with it, when he tries to expectorate his sp utum. PAST MEDICAL/SURGICAL HISTORY: 1. Metastatic prostate cancer status post surgery, XRT, and chemo with disease in his lungs and bone s. 2. COPD. 3. Hypertension. 4. Atrial fibrillation on chronic anticoagulation. 5. Depression. 6. 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 7. Anemia. 8. Lumbar laminectomy. 9. Tonsillectomy. MEDICATIONS: Please see medication reconciliation. ALLERGIES: Penicillin. SOCIAL HISTORY: Lives at [facility]. Does not drink or smoke. He was in the [employer]. He spent most of his career in the [employer] field. FAMILY HISTORY: Negative for prostate cancer. REVIEW OF SYSTEMS: A 10-point review of systems is conducted and is negative except per HPI. PHYSICAL EXAM: VITAL SIGNS: Blood pressure 141/99, heart rate 100, respiration rate 16, saturating 91% on room air. Temperature 36.3. GENERAL: The patient is a pleasant frail elderly man who is sli ghtly stooped forward. HEENT: Shows him to be normocephalic, atraumatic. CARDIOVASCULAR: Shows hi m to be irregularly irregular. I believe that there is a faint systolic murmur. PULMONARY: Shows h im to be in no respiratory distress. He is breathing comfortably. Lungs clear to auscultation bilat erally. ABDOMEN: Soft. Scaphoid. There is a mild nodule that appears to be subcutaneous close to his umbilicus. He has a midline well-healed surgical incision. SKIN: Exam shows no rash. : Exa m no Palacio. NEUROLOGIC: Exam shows him to be alert and oriented x3. He is moving all extremities. PSYCHIATRIC: Exam shows normal mood and affect. LABS: White count is 16.4, 82% neutrophils, hemoglobin is 12.8, platelets are 443, INR is 1.4, bicar b is 10, creatinine is 1.2. BUN is 31. Flu swab is negative. DATA: 1. I personally viewed and interpreted his EKG. This shows a left bundle branch block. It is not s ignificantly changed from his previous. 2. I personally viewed and interpreted his chest x-ray. This shows metastatic disease, but no acute infiltrates. 3. I reviewed his head CT. This shows chronic left maxillary sinusitis. He additionally has bony m etastatic disease. IMPRESSION AND PLAN: 1. Dehydration: Due to poor p.o. intake, in the setting of an upper respiratory infection. Will pr ovide him aggressive hydration with D5 lactated Ringer. He lacks skin turgor, is quite acidotic, was tachycardic on presentation. Will follow clinically very closely. 2. Upper respiratory infection: Suspect this is viral. I will send a full respiratory panel PCR. 3. Leukocytosis: I do not have any evidence of a significant bacterial infection at this point. Wi ll hold on antibiotics. Recheck tomorrow, once his hydration status is improved. 4. Cachexia: His body mass index is 15. A nutrition consult has been placed. 5. Atrial fibrillation on chronic anticoagulation with subtherapeutic INR: Will continue his warfar in and recheck INR in the morning. We will continue his metoprolol. 6. Code status: He would like to be Do Not Resuscitate. /[id number]/MODL
[2019-02-02] MEDS: WARFARIN SODIUM 5 MG TAB PO SCH (20:29)
[2019-02-02] MEDS: METOPROLOL TARTRATE 25 MG TAB PO SCH (20:29)
[2019-02-02] MEDS: predniSONE 5 MG TAB PO SCH (20:29)
[2019-02-02] MEDS: Cetirizine Hcl/Pseudoephedrine [Zyrtec-D Tablet] PO SCH (20:38)
[2019-02-03] MEDS: D5W LR 1,000 ML IV SCH (00:38)
[2019-02-03 05:53] LABS: INR 1.52 (0.83-1.16); PROTIME(PATIENT) 17.6 SEC (12.0-15.0)
[2019-02-03 06:09] LABS: PLATELET COUNT 256 10^3/uL (150-400)
[2019-02-03] MEDS: POTASSIUM Cl (KCl) 20 MEQ in D5W LR 1,000 ML IV SCH ×2 (09:04→21:10)
[2019-02-03] MEDS: METOPROLOL TARTRATE 25 MG TAB PO SCH ×2 (09:56→19:56)
[2019-02-03] MEDS: predniSONE 5 MG TAB PO SCH ×2 (09:56→19:57)
[2019-02-03] MEDS: Cetirizine Hcl/Pseudoephedrine [Zyrtec-D Tablet] PO SCH ×2 (10:06→19:41)
[2019-02-03] MEDS: ABIRATERONE ACETATE 250 MG PO SCH (10:06)
--- NOTE | 2019-02-03 11:09 | HOSPPROG ---
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 # chronic sinusitis - he has seen Dr Dennis, and will plan to follow up on discharge # underweight - dietary consult # permanent a-fib - cont warfarin (slightly low INR), will not bridge - cont metop # metastatic prostate cancer - on leupron Subjective: still feels very weak and concerned about falling Objective: Vital Signs Temp Pulse Resp BP Pulse Ox 36.4 C 77 16 131/74 H 96 02/03/19 08:00 02/03/19 08:00 02/03/19 08:00 02/03/19 08:00 02/03/19 08:00 Laboratory Results 02/03/19 04:35 02/03/19 04:35 02/02/19 02/03/19 02/04/19 05:59 05:59 05:59 Intake Total 2716 Balance 2716 PT 17.6 SEC (12.0-15.0) H 02/03/19 04:35 INR 1.52 (0.83-1.16) H 02/03/19 04:35 - Physical Exam Constitutional: cachectic Cardiovascular: regular rate and rhythym, no murmur, rub, or gallop Respiratory: no respiratory distress, no rales or rhonchi, clear to auscultation Gastrointestinal: soft, non-tender abdomen, no palpable masses, No guarding, No rebound ICD10 Worksheet Patient Problems: Problems Problem Status Onset Prostate cancer Acute Acute cholecystitis Acute Gallbladder & bile duct stone with obstruction Acute Acute renal failure Acute Dehydration Acute Bronchitis Acute
--- NOTE | 2019-02-03 11:17 | ASMTCMCOM ---
CM Note CM Note Notes: Pt is a 78 yo M who lives at [facility]. Pt has a history of metastatic prostate cancer and chronic sinus infections. Pt reports he has a fear of falling because the last time she had a sinus infection he fell multiple times. 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 Discharge needs TBD at this point. CM to follow. Plan: TBD Date Signed: 02/03/2019 11:16 AM Electronically Signed By:JENNIFER Wisdom
[2019-02-03] MEDS: CEPACOL LOZENGE PO PRN ×2 (12:06→18:21)
--- NOTE | 2019-02-03 15:37 | PDMN ---
Medical Necessity Medical necessity: Change to IP, as of 02/03/19, per MD & MCG M-123; los >2 mn for ongoing management of severe dehydration w/URI, dysphagia, hypokalemia & weakness; requiring further monitoring, IVFs & therapies; comorbid advanced age , metastatic prostate cancer, AFIB, malnutrition
[2019-02-03] MEDS: WARFARIN SODIUM 5 MG TAB PO SCH (19:57)
[2019-02-04 05:34] LABS: PLATELET COUNT 237 10^3/uL (150-400)
[2019-02-04] MEDS: ACETAMINOPHEN 325 MG TAB PO PRN (09:00)
[2019-02-04] MEDS: predniSONE 5 MG TAB PO SCH ×2 (09:01→19:59)
[2019-02-04] MEDS: METOPROLOL TARTRATE 25 MG TAB PO SCH ×2 (09:01→20:00)
[2019-02-04] MEDS: ABIRATERONE ACETATE 250 MG PO SCH (09:03)
[2019-02-04] MEDS: Cetirizine Hcl/Pseudoephedrine [Zyrtec-D Tablet] PO SCH ×2 (09:03→19:12)
--- NOTE | 2019-02-04 09:25 | HOSPPROG ---
Hospitalist Progress Note Assessment/Plan: #Metastatic prostate cancer: home meds #Hypokalemia: replete #Atrial fibrillation: coumadin #URI: negative resp panel, no PNA on CXR #Mod protein caloric malnutrition: unable to eat with excess secretion, dry socket. Dietary consult #Chronic sinusitis: FU outpatient with Dr. Dennis #Dysphagia: + video swallow, 06/2018. SPL evaluated here. No signs dysphasia, prolonged mastication. -sx c/w post-nasal drip; trial Flonase. Consider scop-patch, but anti- cholinergic risks caitlyn with age -regular diet/thin liquids #Deconditioning: PT/OT #DVT ppx: coumadin Disp: monitor overnight given minimal PO intake, dietary to consult. Will DC tomorrow if clinically improved Subjective: a lot of secretions; couging up phlegm Objective: Vital Signs Temp Pulse Resp BP Pulse Ox 36.4 C 68 16 142/76 H 93 02/04/19 08:15 02/04/19 09:01 02/04/19 08:15 02/04/19 09:01 02/04/19 08:15 Laboratory Results 02/04/19 04:30 02/04/19 04:30 02/03/19 02/04/19 02/05/19 05:59 05:59 05:59 Intake Total 2945 Balance 2945 PT 17.6 SEC (12.0-15.0) H 02/03/19 04:35 INR 1.52 (0.83-1.16) H 02/03/19 04:35 - Time Spent With Patient Time Spent with Patient: greater than 35 minutes Time Spent with Patient: Greater than 35 minutes spent on this patients care, greater than 50% of time spent counseling, educating, and coordinating care regarding the above mentioned plan. - Physical Exam Constitutional: no apparent distress Eyes: PERRL Ears, Nose, Mouth, Throat: other (no erythema or exudate. Post-nasal drip) Cardiovascular: regular rate and rhythym Respiratory: no respiratory distress Gastrointestinal: normoactive bowel sounds Genitourinary: no bladder fullness Skin: warm Musculoskeletal: full muscle strength Neurologic: AAOx3, CN II-XII Intact Psychiatric: interacting appropriately ICD10 Worksheet Patient Problems: Problems Problem Status Onset Bronchitis Acute Dehydration Acute Prostate cancer Acute Acute cholecystitis Acute Acute renal failure Acute Gallbladder & bile duct stone with obstruction Acute
[2019-02-04 11:54] LABS: INR 2.17 (0.83-1.16); PROTIME(PATIENT) 23.1 SEC (12.0-15.0)
[2019-02-04] MEDS: FLUTICASONE NASAL 120 SPRAYS/16 GM MDI EACHNARE SCH (12:22)
[2019-02-04] MEDS: PHENOL 177 ML THROAT SPRAY PO PRN (12:23)
[2019-02-04] MEDS: WARFARIN SODIUM 5 MG TAB PO SCH (19:59)
[2019-02-05] MEDS: ACETAMINOPHEN 325 MG TAB PO PRN ×2 (00:52→09:29)
[2019-02-05] MEDS: POTASSIUM Cl (KCl) 20 MEQ in D5W LR 1,000 ML IV SCH (01:04)
[2019-02-05] MEDS: PHENOL 177 ML THROAT SPRAY PO PRN (04:23)
[2019-02-05 05:24] LABS: INR 2.08 (0.83-1.16); PROTIME(PATIENT) 22.4 SEC (12.0-15.0)
[2019-02-05 09:02] VITALS: BP 156/82
[2019-02-05] MEDS: FLUTICASONE NASAL 120 SPRAYS/16 GM MDI EACHNARE SCH (09:28)
[2019-02-05] MEDS: predniSONE 5 MG TAB PO SCH (09:29)
[2019-02-05] MEDS: METOPROLOL TARTRATE 25 MG TAB PO SCH (09:29)
[2019-02-05] MEDS: ABIRATERONE ACETATE 250 MG PO SCH (09:31)
--- NOTE | 2019-02-05 09:31 | PDIAF ---
- Diagnosis Diagnosis: Weakness, dehydration Code Status: Do Not Resuscitate - Medication Management Discharge Medications: electronically signed and located in the Home Medication List. - Orders Services needed: Registered Nurse, Physical Therapy, Occupational Therapy Isolation Type: None Diet Texture: Regular Texture Diet, Thin Liquids, Meds Whole in Puree, Meds Crushed in Puree - Labs/Radiology PT/INR Date: 02/06/19 (on Coumadin) - Follow Up Care Current Providers and Referrals: Patient,NotPresent [Unknown] - As per Instructions
--- NOTE | 2019-02-05 10:00 | PDIAF ---
- Diagnosis Diagnosis: Weakness, dehydration Code Status: Do Not Resuscitate - Medication Management Discharge Medications: electronically signed and located in the Home Medication List. - Orders Services needed: Home Care, Registered Nurse, Physical Therapy, Occupational Therapy Home Care Face to Face: I certify that this patient was under my care and that I had the required [id number] encounter meeting the encounter requirements on the discharge day. My findings support the fact that the patient is homebound as defined in Home Care Face to Face Continued: CMS Chapter 7 Medicare Benefits Manual 30.1.1 , The condition of the patient is such that there exists a normal inability to leave home and consequently, leaving home would require a considerable and taxing effort. Isolation Type: None Diet Texture: Regular Texture Diet, Thin Liquids, Meds Whole in Puree, Meds Crushed in Puree - Labs/Radiology PT/INR Date: 02/06/19 (on Coumadin) - Follow Up Care Current Providers and Referrals: Patient,NotPresent [Unknown] - As per Instructions
[2019-02-05] MEDS: Cetirizine Hcl/Pseudoephedrine [Zyrtec-D Tablet] PO SCH (10:09)
--- NOTE | 2019-02-05 11:12 | ASMTLACE ---
LACE Length of stay for Answers: 2 days current admission Acuity / Level of Answers: Yes Care: Did the patient have an inpatient admission? Comorbidities - select Answers: Any tumor (including all that apply lymphoma or leukemia) Chronic pulmonary disease Other Notes: AFib; HTN # of Emergency department Answers: 1-2 visits in the last 6 months Social determinants Answers: Mental health diagnosis (anxiety, depression, pers onality disorders, etc.) Score: 14 Date Signed: 02/05/2019 11:12 AM Electronically Signed By:Serenity Vail RN
--- NOTE | 2019-02-05 11:29 | ASMTDCNOTE ---
Case Management Discharge Discharge Order Complete? Answers: Yes Patient to Obtain Answers: Independently Medications Transportation Arranged Answers: Taxi - Self Pay Faxed Final Orders Answers: Yes Notes: to [facility] Agency/Facility Transfer Answers: Yes Notes: to [facility] Report Printed & Faxed to Receiving Agency Discharge Comments Notes: 02/05/2019 Case Management Note Met w/pt. IM signed. Pt was previously open with [facility]. Requested referral to [facility] for home health. Phone call to [facility] economics consultant Rhianna gasca acceptance. Pt to private pay for taxi home. Case Mangement d/c poc: home with [facility] RN PT OT Date Signed: 02/05/2019 11:29 AM Electronically Signed By:Serenity Vail RN
--- NOTE | 2019-02-05 11:30 | ASDISCHSUM ---
Discharge Information Plan Status:Home with Home Health Medically Cleared to Leave:02/05/2019 Discharge Date:02/05/2019 CM D/C Disposition:Home Health Service ADT D/C Disposition:[facility] Facility Projected Discharge Date:02/05/2019 11:00 AM Transportation at D/C:Taxicab Discharge Delay Reason: Follow-Up Date:02/05/2019 11:00 AM Discharge Slot: Final Diagnosis: Placement Information Referral Type:*Home Health Care Services Referral ID:[id number] Provider Name:[facility] Address 1:[address] [place] [address] Address 2: City:[place] Selection Factors: State:[place] Patient Contact Information Contact Name:NIKHIL Relationship:Friend Address: Work Phone: City:[place] Alternate Phone: [facility]/Zip Code:[place] Email: Financial Information Financial Class:Medicare Primary Plan Desc:MEDICARE INPATIENT Primary Plan Number:[id number] Secondary Plan Desc: Secondary Plan Number: Assessment Information LACE LACE Length of stay for Answers: 2 days current admission Acuity / Level of Answers: Yes Care: Did the patient have an inpatient admission? Comorbidities - select Answers: Any tumor (including all that apply lymphoma or leukemia) Chronic pulmonary disease Other Notes: AFib; HTN # of Emergency department Answers: 1-2 visits in the last 6 months Social determinants Answers: Mental health diagnosis (anxiety, depression, pers onality disorders, etc.) Score: 14 Date Signed: 02/05/2019 11:12 AM Electronically Signed By:Serenity Vail RN [facility] CM Progress Note CM Note CM Note Notes: Pt is a 78 yo M who lives at [facility]. Pt has a history of metastatic prostate cancer and chronic sinus infections. Pt reports he has a fear of falling because the last time she had a sinus infection he fell multiple times. 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 Discharge needs TBD at this point. CM to follow. Plan: TBD Date Signed: 02/03/2019 11:16 AM Electronically Signed By:JENNIFER Wisdom Case Management Discharge Plan Note Case Management Discharge Discharge Order Complete? Answers: Yes Patient to Obtain Answers: Independently Medications Transportation Arranged Answers: Taxi - Self Pay Faxed Final Orders Answers: Yes Notes: to [facility] Agency/Facility Transfer Answers: Yes Notes: to [facility] Report Printed & Faxed to Receiving Agency Discharge Comments Notes: 02/05/2019 Case Management Note Met w/pt. IM signed. Pt was previously open with [facility]. Requested referral to [facility] for home health. Phone call to [facility] salesperson children's shoes Rhianna gasca acceptance. Pt to private pay for taxi home. Case Mangement d/c poc: home with [facility] RN PT OT Date Signed: 02/05/2019 11:29 AM Electronically Signed By:Serenity Vail RN Intervention Information Intervention Type:*Incorrect Registration Date of Service:02/02/2019 05:30 PM Patient Type:Observation Staff Member:PAWAN Chao Courtney Hours: Discipline: Severity: Comment: Intervention Type:*KO-Signed Date of Service:02/03/2019 01:47 PM Patient Type:Observation Staff Member:Angeles Marsh Hours: Discipline: Severity: Comment: Intervention Type:*IM-Signed Date of Service:02/05/2019 11:27 AM Patient Type:Inpatient Staff Member:PAWAN Vail, Serenity Hours: Discipline: Severity: Comment:
--- NOTE | 2019-02-05 13:00 | GDS ---
[f rep st] DISCHARGE SUMMARY DISCHARGE DIAGNOSES: 1. Dehydration. 2. Dysphagia. 3. Metastatic prostate cancer, status post surgery, XRT, chemo. 4. COPD without exacerbation. 5. Hypertension. 6. Atrial fibrillation, on Coumadin. 7. Depression. 8. 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 9. Anemia. HPI: A 78-year-old male with metastatic prostate cancer, presents with dehydration. He has had URI, including sinusitis, runny nose, and sore throat. He has also had dental issues in which he cannot chew his food very well due to a missing tooth. He has not eaten well for 3 days. Had some retching, which he attributes to postnasal drip. HOSPITAL COURSE BY PROBLEM: 1. Metastatic prostate cancer. Resume home medications. 2. Hypokalemia: resolved. 3. Atrial fibrillation. INR at goal. 4. URI: Negative respiratory panel, no PNA. 5. Moderate protein-caloric malnutrition. difficulty eating with excess secretions, dry socket. Trial Flonase. 6. Chronic sinusitis. Follow up with Dr. Dennis. 7. Dysphagia was evident on video swallow 06/2018. Speech evaluated here. No sounds of dysphagia, but does have prolonged mastication. Begin trial of Flonase. Regular diet/thin liquids. 8. Deconditioning. Discharge back to [facility] with home PT/OT. DISPOSITION: 1. Patient is stable for discharge home. FOLLOW UP: 1. Dr. Dennis with ENT. 2. Dental appointment. 3. INR check. PHYSICAL EXAM: VITAL SIGNS: Today, temperature 36.5, blood pressure 156/82, heart rate is in the 70s, respirations 16, 97% on room air. GENERAL: Appears much brighter. HEENT: Poor dentition. No abscess or ulcerations. CV: Regular rate and rhythm. LUNGS: Clear. ABDOMEN: Soft, nontender. : No Palacio. MUSCULOSKELETAL: 5/5 upper, lower extremity strength. NEURO: 2 through 12 intact. PSYCH: Alert and oriented x3. Time spent on discharge: Greater 30 minutes coordinating and bedside counseling on followup plan. /[id number]/MODL MTDD
== END 2019-02-05 11:51 | DRG 641 ==
LOC: EDUNIT# → INTOOBSV 12:32 → F1N 14:11 → OBSVTOIN 02-03 11:04
PROVIDERS: ADMIT Student in an Organized Health Care Education/Training Program; ATTEND Internal Medicine
DX: E86.0 Dehydration (principal); R13.10 Dysphagia, unspecified; E44.0 Moderate protein-calorie malnutrition; I48.2 Chronic atrial fibrillation; I10 Essential (primary) hypertension; J44.9 Chronic obstructive pulmonary disease, unspecified; J32.9 Chronic sinusitis, unspecified; R15.9 Full incontinence of feces; D64.9 Anemia, unspecified; C78.00 Secondary malignant neoplasm of unspecified lung; C79.51 Secondary malignant neoplasm of bone; Z68.1 Body mass index [BMI] 19.9 or less, adult; Z85.46 Personal history of malignant neoplasm of prostate; Z79.01 Long term (current) use of anticoagulants; Z85.51 Personal history of malignant neoplasm of bladder; Z92.3 Personal history of irradiation
CPT/HCPCS: 92610-GN; 97116-GP; 97161-GP; 97165-GO; 97530-GP; 97535-GO; G0378; J3480; J7512

== ENCOUNTER → 2019-04-10 | Outpatient (CLI) | payer OTHER | LOC: FIMAGING 09:43 | PROVIDERS: ATTEND Internal Medicine Hematology & Oncology | DX: R97.21 Rising PSA following treatment for malignant neoplasm of prostate (principal); C61 Malignant neoplasm of prostate; C79.51 Secondary malignant neoplasm of bone | CPT/HCPCS: 78306; A9503 ==